=== PATIENT | female | born 1950 | race Caucasian/White ===

== ENCOUNTER 2018-01-06 06:15 | Day surgery (SDC) | payer MEDICARE, BC, SELFPAY ==
--- NOTE | 2018-01-06 06:13 | W.PM.HP.N ---
Date of service: 01/06/18 Assessment and Plan (1) Encounter for colorectal cancer screening: Current visit: Yes Status: Acute P\\ Colonoscopy under sedation Risks, benefits and adhesions were reviewed with the patient. Complications include but are not limited to bleeding, pain, perforation, adverse reaction to the medications, missed small polyps or lesions, sore throat and aspiration. Questions were entertained and answered to her satisfaction and she wished to proceed. No guarantees were given or implied. History of Present Illness Narrative: Mrs. Ybarra 67-year-old female who was seen in the office in October for a screening colonoscopy. Her last colonoscopy was 10 years ago and was normal. She was told she had some scar tissue from possible having a fistula. She has noted that after going to the bathroom and cleaning herself she has staining in her underwear no rectal pain or bleeding. She denies any melena, hematochezia, abdominal pain, weight loss or changes in bowel habits. There is no family history of colon cancer. She is healthy and denies any chest pain. She has had some progressive shortness of breath with exercise which is being worked up. She is able to walk up a flight of stairs without shortness of breath. There has been no changes in her health since she was seen in the office in late October. 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 Postmenopausal Social History Smoking/Tobacco Use Status: Never Surgical History Appendectomy (~1989) Breast, Mastectomy (08/09/15) Colonoscopy - IV Sedation Total replacement of hip (06/30/16) Ultrasound guided automated core biopsy, left breast (07/15/15) Meds Home Medications Medication Instructions Recorded Confirmed Type Compounded T3/T4 1 cap PO DAILY cap 09/03/14 01/03/18 History Adrenal 1 tab PO DAILY 04/18/15 01/03/18 History Ca carb-Ca gluc-Mg ox-Mg gluco 1 ea PO DAILY 04/18/15 01/03/18 History [Calcium Magnesium] Tumeric Complex 2 cap PO BID 04/18/15 01/03/18 History cholecalciferol (vitamin D3) 3,000 - 5,000 unit PO DAILY 04/18/15 01/03/18 History [Vitamin D3] multivitamin [Daily Multi-Vitamin] 1 ea PO DAILY 04/18/15 01/03/18 History K Mg 3 tab PO DAILY 06/24/15 01/03/18 History Herbal Support Complex 1 cap PO DAILY 06/18/16 01/03/18 History Thyroid Support 1 tab PO DAILY 01/21/17 01/03/18 History acetaminophen [Mapap Extra 1,000 mg PO Q8H PRN PRN #120 tab 01/29/17 01/03/18 Rx Strength] sertraline 25 mg PO DAILY #90 tab 07/06/17 01/03/18 Rx Cbd Oil PO HS 08/19/17 Clinic Potassium Bicarb/Mag Combo 21 183 gm PO DAILY NS 11/09/17 01/03/18 History [Magnesium Fizz-Plus Powder] aspirin [Low Dose Aspirin Ec] 81 mg PO DAILY tab-cap NS 11/09/17 History bisacodyl [Bisa-Lax] 5 mg PO as directed #4 tab 11/09/17 Rx polyethylene glycol 3350 255 gm PO as directed for colo 11/09/17 Rx #255 gm amoxicillin 2 g PO ONCE PRN 01/03/18 01/03/18 History Allergies Allergy/AdvReac Type Severity Reaction Status Date / Time celecoxib [From Celebrex] Allergy Intermediate rash Unverified 01/03/18 14:19 NSAIDS (Non-Steroidal Allergy Unknown Hives Unverified 01/03/18 14:19 Anti-Inflamma adhesive AdvReac LG LOCAL Unverified 01/03/18 14:19 REACTION codeine [Codeine] AdvReac DIZZINESS/L Unverified 01/03/18 14:19 IGHTHEADEDN ESS FRAGRANCES Allergy Unknown Skin Rash Uncoded 01/03/18 14:19 chlorine AdvReac Mild Skin Rash Uncoded 01/03/18 14:19 Exam HENMT Head: normocephalic and atraumatic Resp Effort & Inspection: normal respiratory effort Auscultation: clear to auscultation bilaterally Cardio Rate: regular rate Rhythm: regular rhythm Heart Sounds: no click, no gallops, no murmurs and no rubs
--- NOTE | 2018-01-06 06:22 | W.COLOREPORT ---
Colonoscopy Report Date of procedure: 01/06/18 Pre-op diagnosis general: Screening Colonoscopy Post-op diagnosis procedure note: other (Diverticulosis/ internal hemorrhoids/ skin tags) Procedure: Colonoscopy with biopsy Surgeon: Gertrude Johnston Anesthesia proc note operative: MAC (Adama Velasquez CRNA) Estimated blood loss (mL): 1 Pathology: none sent Complications: None Disposition: same day Indications: Mrs. Ybarra is here for a screening Colonoscopy. Her last colonoscopy was normal 10 years ago. Risks, benefits and complications were again reviewed with her and she wished to proceed. No guarantees were given or implied to stop Prep: Miralax/Dulcolax Procedure Start Time: 07:42 Procedure End Time: 08:11 Retraction Time: 16 minutes Findings: Left sided diverticulosis Grade 2 internal hemorrhoids and skin tags Procedure Description: After informed consent was obtained the patient was taken to the procedure room and placed in a left decubitous position. Monitors were applied and a time out was done. The patients name, date of , procedure, allergies to medications and metal in their body was reviewed. The patient was then sedated. Once sedated and comfortable a rectal exam was done. External exam was normal. Internal exam revealed a normal sphincter tone and no palpable masses. The scope was then introduced and retroflexed. Grade 2 internal hemorrhoids were identified as well as skin tags. The scope was then advanced to the cecum with some difficulty. Her right colon was very tortuous. The TI and appendiceal orifice were identified. The prep was adequate. The scope was then slowly retracted over 16 minutes back into the rectum. Biopsies of a skin tag were done but the tissue was not found in the grasper or tubing. The scope was removed and the patient was woken up and taken back to Same day surgery in stable condition. The patient tolerated the procedure well and there were no immediate complications. Follow up: The patient should follow up in 10 years unless they develop changes in bowel habits or other new gastrointestinal complaints.
[2018-01-06 06:38] VITALS: BP 138/82; PULSE 80; RESP 18; TEMP 36.5; O2SAT 96
--- NOTE | 2018-01-06 06:39 | W.PM.DSUDISC ---
Discharge Plan Disposition Patient Disposition: HOME Condition: Good Discharge Details Reason For Visit: Colon Cancer screening Attending Provider: Gertrude Johnston Primary Care Provider: Lilliam Bah Home Meds and New Rx's Prescriptions: Continue compounded T3/T4 1 cap PO DAILY RF: 0 multivitamin [Daily Multi-Vitamin] 1 EACH tablet 1 ea PO DAILY RF: 0 cholecalciferol (vitamin D3) [Vitamin D3] 1,000 UNIT capsule 3,000 - 5,000 unit PO DAILY RF: 0 Ca carb-Ca gluc-Mg ox-Mg gluco [Calcium Magnesium] 1 EACH tablet 1 ea PO DAILY RF: 0 adrenal 1 tab PO DAILY RF: 0 tumeric complex 2 cap PO BID RF: 0 K Mg 3 tab PO DAILY RF: 0 sertraline 25 MG tablet 25 mg PO DAILY Qty: 90 RF: 3 CBD oil PO HS RF: 0 aspirin [Aspirin Low Dose] 81 MG tablet,delayed release (DR/EC) 81 mg PO DAILY RF: 0 Potassium Bicarb/Mag Combo 21 [Magnesium Fizz-Plus Powder] 183 GM POWD.EFFER 183 gm PO DAILY RF: 0 Thyroid Support 1 tab PO DAILY RF: 0 acetaminophen [Mapap Extra Strength] 500 MG tablet 1,000 mg PO Q8H PRN PRNQty: 120 RF: 0 Herbal Support Complex 1 cap PO DAILY RF: 0 amoxicillin 500 MG tablet 2 g PO ONCE PRNRF: 0 Discontinued bisacodyl [Bisa-Lax] 5 MG tablet,delayed release (DR/EC) 5 mg PO as directed Qty: 4 RF: 0 polyethylene glycol 3350 255 GM powder 255 gm PO as directed for colo Qty: 255 RF: 0 Discharge Instructions Instructions: Colonoscopy (DC), Hemorrhoids (DC), Diverticulosis (DC) Additional Instructions: Findings: Internal hemorrhoids and skin tag Diverticulosis Follow up: 10 years New Medications: none Please call if you develop: fevers >101.5 Nausea or Vomiting Non Transient abdominal pain Worsening shortness of breath 1. Because there will be medication in your system for the next 24 hours, you may feel a little sleepy. Your coordination will be affected. Therefore: a. Do not drive or operate dangerous equipment for 24 hours. b. Do not drink alcohol beverages for 24 hours (not even beer). c. Plan to go home and rest for the day. 2. Generally there are no restrictions on your activity after a day or so has gone by, but you may feel a bit fatigued for a few days. 3 After you arrive home you may have a light meal and return to a normal diet as you can tolerate it without feeling sick to your stomach. 4. After surgery, you may feel pain or discomfort. This should be only transient, but if it persists please contact your doctor. 5. If there are any questions regarding the findings of your procedure, please feel free to contact your doctor. 6. If you are unable to contact your doctor with a problem, [facility] at [phone]. 7. Continue all your regular medications unless directed otherwise. I understand the above instructions and have no questions. Signature of Patient or Responsible Adult Escort Date/Time Name of Responsible Adult Escort Signature of Nurse Date/Time Activity:: Activity as Tolerated Diet:: As Tolerated Discharge Orders Discharge Orders: Discharge Order (Routine); Ordered 01/06/18 Ordered By: Gertrude Johnston DS: Diagnosis Discharge Diagnosis (1) Encounter for colorectal cancer screening: Status: Acute
[2018-01-06] MEDS: Lactated Ringers 1,000 ML 80 ML IV (07:00)
[2018-01-06 08:45] VITALS: BP 125/66; PULSE 52; RESP 18; TEMP 36.1; O2SAT 97
== END 2018-01-06 09:40 | disposition home or self-care (01) ==
PROVIDERS: PCP Nurse Practitioner Family; Visit Provider Surgery
PROC: 0DJD8ZZ Inspection of Lower Intestinal Tract, Via Natural or Artificial Opening Endoscopic (ICD-10-PCS; CPT 45378; principal; 2018-01-06 07:30)
DX: Z12.11 Encounter for screening for malignant neoplasm of colon (principal); K57.30 Diverticulosis of large intestine without perforation or abscess without bleeding; K64.1 Second degree hemorrhoids; K64.4 Residual hemorrhoidal skin tags
CPT/HCPCS: G0121; NC; J2250; J3010

== ENCOUNTER 2018-01-24 08:10 | Outpatient (CLI) | payer MEDICARE, BC, SELFPAY ==
--- NOTE | 2018-01-24 08:01 | DI.RAD_ITS ---
SYMPTOM/DIAGNOSIS: B/L GUICHO PELVIS AND BILATERAL HIPS: Comparison is 01/28/17 and 07/05/17. There are again seen post surgical changes with bilateral total hip replacements. No evidence of hardware failure seen. The bones are intact and normally mineralized. The soft tissues are unremarkable. IMPRESSION: Stable bilateral THR.
== END 2018-01-24 08:30 ==
PROVIDERS: PCP Nurse Practitioner Family; Visit Provider Physician Assistant
DX: Z96.643 Presence of artificial hip joint, bilateral (principal); Z47.1 Aftercare following joint replacement surgery; M76.31 Iliotibial band syndrome, right leg
CPT/HCPCS: 73521; 99213

== ENCOUNTER 2018-02-25 02:05 | Outpatient (CLI) | payer MEDICARE, BC, SELFPAY ==
[2018-02-25 10:02] LABS: Abs Immature Grans 0.01 k/cumm (0.0-0.09); Absolute Basophil Count 0.02 k/cumm (0.0-0.2); Absolute Eosinophil Count 0.06 k/cumm (0.0-0.7); Absolute Lymphocyte Count 1.99 k/cumm (1.2-3.4); Absolute Monocyte Count 0.43 k/cumm (0.11-0.7); Basophils % 0.4; Eosinophils % 1.2; HCT 42.3 % (36.0-46.0); HGB 14.3 g/dL (12.0-15.5); Immature Grans % 0.2; Lymphocytes % 38.9; Mean Corp. HGB Concentration 33.8 g/dL (32.0-36.0); Mean Corpuscular Hemoglobin 29.5 pg (27.0-33.0); Mean Corpuscular Volume 87.2 fL (80-95); Mean Platelet Volume 9.8 fL (8.0-11.0); Monocytes % 8.4; Neutrophils % 50.9; Platelet Count 282 x1000/uL (130-400); RBC 4.85 m/cumm (4.00-5.20); RBC Distribution Width 13.3 % (11.7-14.6); White Blood Cell Count 5.11 k/cumm (4.4-10.8)
[2018-02-25 11:28] LABS: ESR 11 MM/HR (0-30)
[2018-02-25 13:24] LABS: ALT 33 U/L (12-78); AST 24 U/L (15-37); Alkaline Phosphatase 76 U/L (46-116); Anion Gap 9.7 mmol/L (3-11); BUN 19 mg/dL (7-18); Bilirubin, Total 0.5 mg/dL (0.2-1.0); CO2 26.3 mmol/L (21.0-32.0); CREATININE 0.82 mg/dL (0.55-1.02); Calcium 9.2 mg/dL (8.5-10.1); Chloride 105 mmol/L (98-107); Glucose 82 mg/dL (70-100); Potassium 4.3 mmol/L (3.5-5.1); Sodium 141 mmol/L (136-145); TSH (W/Ref FT4) 0.09 uIU/mL (0.358-3.74); Total Protein 7.2 g/dL (6.4-8.2)
[2018-02-25 13:46] LABS: C-Reactive Protein 0.17 mg/dL (0.0-0.3); FREE T4 0.81 ng/dL (0.76-1.46)
== END 2018-02-25 02:25 ==
PROVIDERS: PCP Nurse Practitioner Family; Visit Provider Nurse Practitioner Family
DX: R53.83 Other fatigue (principal); M25.50 Pain in unspecified joint; E03.9 Hypothyroidism, unspecified
CPT/HCPCS: 36415; 80053; 85652; 84439; 84443; 85025; 86140

== ENCOUNTER 2018-06-03 09:18 | Outpatient (CLI) | payer MEDICARE, BC, SELFPAY ==
--- NOTE | 2018-06-03 09:23 | DI.RAD_ITS ---
SYMPTOM/DIAGNOSIS: OA VS ? RA, BILAT KNEE PAIN, JOINT STIFFNESS, M25.561,M25.662, M25.5661 RIGHT KNEE: Three views. Periarticular spurring is seen in the lateral femoral tibial joint space. The joint spaces are otherwise well maintained. No suspicious lytic or sclerotic lesions are seen. The soft tissues show no acute abnormality. There is an enthesophyte seen at the inferior aspect of the patella. IMPRESSION: Mild degenerative changes of the right knee. LEFT KNEE: Three views. The joint spaces are well maintained. The bones appear intact. No suspicious lytic or sclerotic lesions are seen. The soft tissues show no acute abnormality. IMPRESSION: Negative left knee.
[2018-06-03 10:20] LABS: Abs Immature Grans 0.02 k/cumm (0.0-0.09); Absolute Basophil Count 0.02 k/cumm (0.0-0.2); Absolute Eosinophil Count 0.09 k/cumm (0.0-0.7); Absolute Lymphocyte Count 2.19 k/cumm (1.2-3.4); Absolute Monocyte Count 0.61 k/cumm (0.11-0.7); Absolute Neutrophil Count 3.28 k/cumm (1.2-6.7); Basophils % 0.3; Eosinophils % 1.4; HCT 44.4 % (36.0-46.0); Immature Grans % 0.3; Lymphocytes % 35.3; Mean Corp. HGB Concentration 33.8 g/dL (32.0-36.0); Mean Corpuscular Hemoglobin 29.2 pg (27.0-33.0); Mean Corpuscular Volume 86.5 fL (80-95); Monocytes % 9.8; Neutrophils % 52.9; Platelet Count 290 x1000/uL (130-400); RBC 5.13 m/cumm (4.00-5.20); RBC Distribution Width 13.6 % (11.7-14.6); White Blood Cell Count 6.21 k/cumm (4.4-10.8)
[2018-06-03 11:16] LABS: C-Reactive Protein 0.15 mg/dL (0.0-0.3)
[2018-06-03 11:18] LABS: ESR 16 MM/HR (0-30)
[2018-06-06 08:54] LABS: Cyclic Citrullinated Peptide <2.5 U/mL (<5.0)
[2018-06-06 09:19] LABS: Rheumatoid Factor <8 IU/mL (<12.5)
== END 2018-06-03 09:38 ==
PROVIDERS: PCP Nurse Practitioner Family; Visit Provider Nurse Practitioner Family
DX: M25.561 Pain in right knee (principal); M25.661 Stiffness of right knee, not elsewhere classified; M17.11 Unilateral primary osteoarthritis, right knee; M25.562 Pain in left knee; M25.662 Stiffness of left knee, not elsewhere classified
CPT/HCPCS: 36415; 73562; 85652; 86200; 85025; 86140; 86431

== ENCOUNTER 2018-07-12 15:38 | Outpatient (CLI) | payer MEDICARE, BC, SELFPAY ==
--- NOTE | 2018-07-12 12:30 | DI.RAD_ITS ---
SYMPTOMS/DIAGNOSIS: RHONCHI, R09.89 CHEST X-RAY, PA AND LATERAL: Comparison is 07/05/15. The heart size and pulmonary vasculature are within normal limits. The lungs are free of infiltrates, effusions or pneumothoraces. Degenerative changes are seen in the spine. IMPRESSION: No acute pulmonary process.
== END 2018-07-12 15:58 ==
PROVIDERS: PCP Nurse Practitioner Family; Visit Provider Internal Medicine
DX: J98.8 Other specified respiratory disorders (principal); R09.89 Other specified symptoms and signs involving the circulatory and respiratory systems
CPT/HCPCS: 71046

== ENCOUNTER 2018-08-25 12:51 | Outpatient (REF) | payer MEDICARE, BC, SELFPAY ==
--- NOTE | 2018-08-25 10:30 | PAPFT_PTH ---
PATIENT: Pilar Ybarra LOC: [facility] U#:[id number] AGE/SX: 68/F ROOM: RE08/25/[address]: Lilliam Bah APRN : 1950 BED: DIS: 08/25/2018 SPEC #: [id number] RECD: 08/25/18 12:58 STATUS: [place] REPuma #: [id number] [place]: 08/25/18 10:[address]: Lilliam Bah DEPT: [facility] Cytology RECD BY: Kylah Schneider Tissues: 1 - CX/ENDOCX FOR PAP SMEARS Procedures: PAP THIN PREP/UVM Screening Comments: [id number]
== END 2018-08-25 13:11 ==
LOC: LBN 12:51
PROVIDERS: PCP Nurse Practitioner Family; Visit Provider Nurse Practitioner Family
DX: Z12.4 Encounter for screening for malignant neoplasm of cervix (principal); Z91.89 Other specified personal risk factors, not elsewhere classified
CPT/HCPCS: 88142

== ENCOUNTER 2018-08-26 02:36 | Outpatient (CLI) | payer MEDICARE, BC, SELFPAY ==
[2018-08-26 10:08] LABS: Anion Gap 9.2 mmol/L (3-11); BUN 12 mg/dL (7-18); CO2 25.8 mmol/L (21.0-32.0); CREATININE 0.83 mg/dL (0.55-1.02); Calcium 9.2 mg/dL (8.5-10.1); Chloride 105 mmol/L (98-107); Glucose 95 mg/dL (70-100); Potassium 4.4 mmol/L (3.5-5.1); Sodium 140 mmol/L (136-145)
[2018-08-29 10:07] LABS: Hepatitis C Ab w Rflx HCV PCR Negative (NEGAT)
== END 2018-08-26 02:56 ==
PROVIDERS: PCP Nurse Practitioner Family; Visit Provider Nurse Practitioner Family
DX: Z11.59 Encounter for screening for other viral diseases (principal); Z13.1 Encounter for screening for diabetes mellitus; R69 Illness, unspecified
CPT/HCPCS: 36415; 80048; 86803

== ENCOUNTER 2018-09-20 00:54 | Outpatient (CLI) | payer MEDICARE, BC, SELFPAY ==
--- NOTE | 2018-09-20 13:13 | DI.MAMMO_ITS ---
SYMPTOMS/DIAGNOSIS: SCREENING, H/O LEFT BREAST CA, Z12.31, Z85.3 MAMMOGRAM: Mammograms were interpreted according to the usual protocol including computer analysis with CAD system, tomosynthesis and C view imaging. The patient has a history of prior left mastectomy for breast carcinoma. No mass or clumped microcalcification identified in the right breast. Comparison with previous examinations including August 2017 shows no interval change in appearance in comparison with the previous studies. CONCLUSION: No specific evidence of malignancy at this time. Routine screening examinations are suggested at yearly intervals due to the history breast carcinoma. Category 1, breast density category B. MQSA ASSESSMENT OF FINDINGS: Negative. Category 1. Patient will receive a letter notifying them of these results. BI-RADS category B. There are scattered areas of fibroglandular density.
--- NOTE | 2018-09-20 13:13 | DI.RAD_ITS ---
SYMPTOMS/DIAGNOSIS: SCREENING FOR OSTEOPOROSIS, Z78.0, ASYMPTOMATIC MENOPAUSAL STATE DEXA SCAN: DEXA scan was performed according to the usual protocol. Hip scanning was not obtained due to bilateral hip replacements. Lumbar spine scanning shows a T score of 0.2. Previous examination of May 2008 showed a lumbar T score of - 0.2. Left forearm scanning shows a T score of -0.7. Please note that the lateral vertebral scanogram shows no evidence of vertebral compression fracture. CONCLUSION: Findings consistent with normal bone density according to the WHO criteria.
== END 2018-09-20 01:14 ==
PROVIDERS: PCP Nurse Practitioner Family; Visit Provider Nurse Practitioner Family
DX: Z85.3 Personal history of malignant neoplasm of breast; Z13.820 Encounter for screening for osteoporosis; Z78.0 Asymptomatic menopausal state; Z12.31 Encounter for screening mammogram for malignant neoplasm of breast; Z90.12 Acquired absence of left breast and nipple; Z96.643 Presence of artificial hip joint, bilateral
CPT/HCPCS: 77063; 77067; 77080

== ENCOUNTER 2018-10-13 00:10 | Outpatient (CLI) | payer MEDICARE, BC, SELFPAY ==
--- NOTE | 2018-10-13 08:30 | ETT_ITS ---
*[facility]* *[facility]* [address] [place] [address] Stress Electrocardiography Reggie protocol Date of study: 10/13/2018 *PATIENT PRESENTATION* Height: 177.8cm (70in) Blood Pressure: Weight: 90.9kg (200lb) BSA: 2.14m^2 Ordering physician: Lilliam Bah Impressions: Normal study after maximal exercise. Summary: 1. Stress ECG conclusions: The stress ECG is negative. Occasional ventricular ectopy. 2. Stress: The target heart rate was achieved. There is a normal resting blood pressure with an appropriate response to stress. The patient experienced no chest pain during stress. Exercise capacity is average for age. Indication: R06.09. History: REASON FOR VISIT: PT WITH COPD AND ASTHMA IS HAVING PROGRESSIVELY MORE SHORT OF BREATH WITH EXERTION. INTERMITTENT HEART RACING AND OCCASIONAL HEART PALPITATIONS. PMH: COPD. Asthma. Risk factors: Family history of coronary artery disease. Dyslipidemia. Cholesterol: 200mg/dl. HDL: 56mg/dl. LDL: 119mg/dl. Triglycerides: 172mg/dl. ALLERGIES:CELECOXIB. NSAIDS. MEDICATIONS: SERTRALINE 50 MG DAILY. MVI 1 DAILY. CHOLECALCIFEROL 3,000 - 5,000 DAILY. TUMERIC COMPLEX 2 CAPS BID. THYROID SUPPORT 1 TAB DAILY. K MG 1 TABS DAILY. HERBALS SUPPORT COMPLEX 1 COMPLEX 1 CAP DAILY. COMPOUNDED T3/T4 1 CAP DAILY. CBD OIL PO HS. CALCIUM MAGNESIUM 1 DAILY. ADRENAL SUPPORT 1 TAB DAILY. Protocol: Reggie protocol. Baseline ECG: SINUS RHYTHM. HR 64 BPM. Stress protocol: + +---+ + !Stage !HR !BP (mmHg) ! + +---+ + !Baseline supine !64 !130/82 (98) ! + +---+ + !Baseline standing !82 !138/96 (110) ! + +---+ + !Stage I; 1.7mph, 10degrees; 3 min !128!164/82 (109) ! + +---+ + !Stage II; 2.5mph, 12degrees; 3 min!145! ! + +---+ + !Peak stress !160! ! + +---+ + !Recovery; 1 min !88 !186/100 (129)! + +---+ + !Recovery; 3 min !70 !160/82 (108) ! + +---+ + !Recovery; 6 min !74 !148/80 (103) ! + +---+ + * Stress results: Maximal heart rate during stress was 160bpm (105% of maximal predicted heart rate). The maximal predicted heart rate was 152bpm. The target heart rate was achieved. There is a normal resting blood pressure with an appropriate response to stress. The rate-pressure product for the peak heart rate and blood pressure was 49324an Hg/min. The patient experienced no chest pain during stress. Exercise capacity is average for age. Stress ECG: TREADMILL PORTION OF STRESS TEST ENDED IN 4 MINUTES & 25 SECONDS DUE TO SHORTNESS OF BREATH. NORMAL HEART RATE AND BLOOD PRESSURE RESPONSE TO EXERCISE MAX HR = 160 % OF TARGET = 105 PVCs DURING PEAK EXERCISE APPROXIMATE METS ACHIEVED = 6.33 NO ANGINA MILD UPWARD SLOPING ST SEGMENT DEPRESSIONS IN LEAD V4, V5 & V6 NOTED DURING AT IMMEDIATE RECOVERY THEN QUICKLY RETURNED TO BASELINE. AVERAGE FUNCTIONAL CAPACITY FOR EXERCISE. The stress ECG is negative. Occasional ventricular ectopy. Study data: Kavya Little MD supervised and was readily available during the procedure. This study was interpreted by [facility]. Study status: Routine. Consent: The risks, benefits, and alternatives to the procedure were explained to the patient and informed consent was obtained. Procedure: Initial setup. A baseline ECG was recorded. Surface ECG leads and manual cuff blood pressure measurements were monitored. Heart sounds: Normal. Lung sounds: Normal. Treadmill exercise testing was performed using the Reggie protocol. Study completion: The patient tolerated the procedure well and was discharged from the lab. Discharge: The patient left the laboratory in stable condition. Birthdate: Patient birthdate: 1950. Sex: Gender: female. Study date: Study date: 10/13/2018. Study time: 00:01 AM. Signature Documentation: The Stress ECG portion of this study was interpreted by Kavya Little MD. Electronically signed by Kavya Little 10/13/2018 16:55
== END 2018-10-13 00:30 ==
PROVIDERS: PCP Nurse Practitioner Family; Visit Provider Nurse Practitioner Family
DX: R06.09 Other forms of dyspnea (principal); J44.9 Chronic obstructive pulmonary disease, unspecified; J45.909 Unspecified asthma, uncomplicated; R00.2 Palpitations; E78.5 Hyperlipidemia, unspecified; Z82.49 Family history of ischemic heart disease and other diseases of the circulatory system
CPT/HCPCS: 93016; 93018; 93017

== ENCOUNTER 2019-01-23 01:33 | Outpatient (CLI) | payer MEDICARE, BC, SELFPAY ==
[2019-01-23 09:57] LABS: TSH (W/Ref FT4) 1.24 uIU/mL (0.36-3.74)
== END 2019-01-23 01:53 ==
PROVIDERS: PCP Student in an Organized Health Care Education/Training Program; Visit Provider Nurse Practitioner Family
DX: E03.9 Hypothyroidism, unspecified (principal)
CPT/HCPCS: 36415; 84443

== ENCOUNTER 2019-05-15 02:05 | Outpatient (CLI) | payer MEDICARE, BC, SELFPAY ==
[2019-05-15 11:46] LABS: FREE T4 1.14 ng/dL (0.76-1.46); TSH 0.01 uIU/mL (0.36-3.74)
[2019-05-15 16:14] LABS: T3,Free 7.7 pg/mL (2.8-5.3)
== END 2019-05-15 02:25 ==
PROVIDERS: PCP Student in an Organized Health Care Education/Training Program; Visit Provider Student in an Organized Health Care Education/Training Program
DX: E06.3 Autoimmune thyroiditis (principal); F32.9 Major depressive disorder, single episode, unspecified
CPT/HCPCS: 36415; 84439; 84443; 84481

== ENCOUNTER 2019-08-22 03:46 | Outpatient (CLI) | payer MEDICARE, BC, SELFPAY ==
[2019-08-22 11:13] LABS: TSH 0.01 uIU/mL (0.36-3.74)
[2019-08-22 17:30] LABS: T3,Free 5.6 pg/mL (2.8-5.3)
[2019-08-22 17:42] LABS: T3, Total 172 ng/dL (97-169)
== END 2019-08-22 04:06 ==
PROVIDERS: PCP Student in an Organized Health Care Education/Training Program; Visit Provider Student in an Organized Health Care Education/Training Program
DX: E06.3 Autoimmune thyroiditis (principal)
CPT/HCPCS: 36415; 84443; 84480; 84481

== ENCOUNTER 2019-09-12 02:39 | Outpatient (CLI) | payer MEDICARE, BC, SELFPAY ==
[2019-09-12 09:51] LABS: Abs Immature Grans 0.01 k/cumm (0.0-0.09); Absolute Basophil Count 0.03 k/cumm (0.0-0.2); Absolute Eosinophil Count 0.12 k/cumm (0.0-0.7); Absolute Lymphocyte Count 2.36 k/cumm (1.2-3.4); Absolute Neutrophil Count 4.03 k/cumm (1.2-6.7); Basophils % 0.4; Eosinophils % 1.7; HCT 43.1 % (36.0-46.0); HGB 14.8 g/dL (12.0-15.5); Immature Grans % 0.1 %; Lymphocytes % 33.5; Mean Corp. HGB Concentration 34.3 g/dL (32.0-36.0); Mean Corpuscular Hemoglobin 30.1 pg (27.0-33.0); Mean Corpuscular Volume 87.6 fL (80-95); Mean Platelet Volume 9.8 fL (8.0-11.0); Monocytes % 7.1; Neutrophils % 57.2; Platelet Count 318 x1000/uL (130-400); RBC 4.92 m/cumm (4.00-5.20); RBC Distribution Width 13.7 % (11.7-14.6); White Blood Cell Count 7.05 k/cumm (4.4-10.8)
== END 2019-09-12 02:59 ==
PROVIDERS: PCP Student in an Organized Health Care Education/Training Program; Visit Provider Student in an Organized Health Care Education/Training Program
DX: R21 Rash and other nonspecific skin eruption (principal)
CPT/HCPCS: 36415; 85025

== ENCOUNTER 2019-09-25 07:21 | Outpatient (CLI) | payer MEDICARE, BC, SELFPAY ==
[2019-09-27 14:52] LABS: COVID-19 RT-PCR Result NEGATIVE (Negative)
== END 2019-09-25 07:41 ==
PROVIDERS: PCP Student in an Organized Health Care Education/Training Program; Visit Provider Family Medicine
DX: Z03.818 Encounter for observation for suspected exposure to other biological agents ruled out (principal)
CPT/HCPCS: U0003

== ENCOUNTER 2019-09-28 08:41 | Outpatient (CLI) | payer MEDICARE, BC, SELFPAY ==
[2019-09-28] MEDS: Albuterol HFA 18 GM 200 PUFF INH IH (12:59)
[2019-09-28] MEDS: Inhaler, Assist Device 1 EACH MC (13:00)
--- NOTE | 2019-09-30 16:23 | W.PFT ---
Date of service: 09/28/19 Time of Service: 09:06 Pulmonary Function Test Result Interpretation Spirometry: Spirometry shows no evidence of obstructive airways disease, no bronchodilator response Lung Volumes: Not done Diffusion Capacity: Not done Airway Pressure: Not done Impression Normal spirometry. Clinical correlation recommended Clinical Correlation therefore is recommended.
--- NOTE | 2019-09-30 16:25 | W.PFT ---
Date of service: 09/28/19 Time of Service: 09:06 Pulmonary Function Test Result Impression When the study was compared to previous ones from 06/07/2008 and 06/11/2015 the patient has a gradual slight decline in FVC with a total of 440 cc, FEV1 also had an initial decline and a subsequent slight improvement, overall decline is 190 cc. Clinical Correlation therefore is recommended.
== END 2019-09-28 09:01 ==
PROVIDERS: PCP Student in an Organized Health Care Education/Training Program; Visit Provider Internal Medicine
DX: J45.909 Unspecified asthma, uncomplicated (principal)
CPT/HCPCS: 94060

== ENCOUNTER 2019-10-26 01:03 | Outpatient (CLI) | payer MEDICARE, BC, SELFPAY ==
--- NOTE | 2019-10-26 09:20 | DI.MAMMO_ITS ---
EXAM: MG MAMMO SCREENING 60 MIN DUR CLINICAL HISTORY: breast cancer screening,personal h/o breast ca,z85.3 TECHNIQUE: Bilateral full field digital CC and MLO mammographic images were obtained with 3D tomosyn thesis and utilizing computer aided detection (CAD). COMPARISON: Available for comparison. FINDINGS: The patient is status post left mastectomy. Masses/Architectural Distortion: None seen. Microcalcifications: No suspicious pleomorphic-type are seen. Skin Thickening/Nipple Retraction: None. IMPRESSION: 1. No significant interval change with no specific features of malignancy noted. 2. Unless there is more urgent need, screening mammography is recommended, as per [place] [employer] guidelines. BI-RADS Category 1 - Negative Breast Density - Category B - Scattered areas of fibroglandular density A negative radiographic report should not delay biopsy if a dominant or clinically suspicious mass is present. Up to ten percent of cancers are not identified on mammography. A negative report may reinforce clinical impression. Adenosis and dense breasts may obscure an underlying neoplasm. False positive reports average 6 to 10%. Patient will receive a letter notifying them of these results.
== END 2019-10-26 01:23 ==
PROVIDERS: PCP Student in an Organized Health Care Education/Training Program; Visit Provider Nurse Practitioner
DX: Z12.31 Encounter for screening mammogram for malignant neoplasm of breast (principal); Z85.3 Personal history of malignant neoplasm of breast
CPT/HCPCS: 77063; 77067

== ENCOUNTER 2019-10-26 03:14 | Outpatient (CLI) | payer MEDICARE, BC, SELFPAY ==
[2019-10-26 10:04] LABS: ALT 36 U/L (14-59); AST 22 U/L (15-37); Albumin 4.1 g/dL (3.4-5.0); Alkaline Phosphatase 77 U/L (46-116); Anion Gap 11.8 mmol/L (3-11); BUN 12 mg/dL (7-18); Bilirubin, Total 0.5 mg/dL (0.2-1.0); CO2 24.2 mmol/L (21.0-32.0); CREATININE 0.75 mg/dL (0.55-1.02); Calcium 9.1 mg/dL (8.5-10.1); Calculated LDL 152 mg/dL (<100); Chloride 107 mmol/L (98-107); Cholesterol 238 mg/dL (<200); Glucose 93 mg/dL (74-106); HDL Cholesterol 57 mg/dL (40-60); Potassium 4.4 mmol/L (3.5-5.1); Sodium 143 mmol/L (136-145); TSH (W/Ref FT4) 0.14 uIU/mL (0.36-3.74); Total Protein 7.3 g/dL (6.4-8.2); Triglyceride 146 mg/dL (<150)
[2019-10-26 10:50] LABS: FREE T4 1.19 ng/dL (0.76-1.46)
[2019-10-26 17:57] LABS: T3,Free 2.7 pg/mL (2.8-5.3)
== END 2019-10-26 03:34 ==
PROVIDERS: PCP Student in an Organized Health Care Education/Training Program; Visit Provider Student in an Organized Health Care Education/Training Program
DX: J44.9 Chronic obstructive pulmonary disease, unspecified (principal); Z13.220 Encounter for screening for lipoid disorders; E86.0 Dehydration; E06.3 Autoimmune thyroiditis
CPT/HCPCS: 36415; 80053; 80061; 84439; 84443; 84481

== ENCOUNTER 2020-03-18 02:00 | Outpatient (CLI) | payer MEDICARE, BC, SELFPAY ==
--- NOTE | 2020-03-18 07:15 | DI.US_ITS ---
EXAM: US SOFT TISSUE HEAD OR NECK CLINICAL HISTORY: evaluate goiter size,SLIGHT LT SIDE PROTRUSION TO PALPATION,THYROIDITIS,. TECHNIQUE: Ultrasound was performed using standard protocol. COMPARISON: US RIGHT EXTREMITY ULTRASOUND from 08/26/2017 US US THYROID from 03/18/2020 FINDINGS: Sonographic assessment utilizing grayscale and color Doppler imaging was performed and targeted to th e area of clinical concern. Both thyroid lobes exhibit normal size. The right thyroid lobe measures 1.4 centimetres AP by 1.6 seun timetres wide by 4.4 centimetres cephalocaudal. The left thyroid lobe measures 1.3 centimeters AP x 1 .7 centimeters wide by 4.6 centimetres cephalocaudal. Echo architecture is heterogeneous throughout b oth lobes as well as the isthmus. The isthmus itself is not thickened. There are numerous nodules in both lobes as well as in the isthmus, with a total of 11 focal findings . The most significant nodules are as follows... In the superior half of the left lobe there is a taller than wider solid nodule measuring 1.4 by 0.9 by 0.8 cm. It is isoechoic to surrounding parenchyma, exhibits relatively smooth border but contains some calcifications therein. Ti-Rads= 7 points, requiring FNA. Medial to this is a smaller 4 by 3 x 5 millimeter solid nodule in the upper aspect of the left lobe a nd in the inferior aspect of the lower lobe are other smaller nodules measuring 8 x 5 x 7 and 6 x 4 x 5 millimeters. Also small nodules in the isthmus. In the right lobe there are 6 nodules, the most significant being superiorly. There are 2 nodules in the superior aspect of the right lobe. The more lateral of the 2 is a solid 8 x 8 x 8 millimeter nodu le which affects the contour of the gland at this level, indenting the overlying strap muscle. This i s wider than taller and is isoechoic. It does not contain echogenic foci. Total tir-rads point= 6 which is moderately suspicious. Just medial to this in the right lobe is a 10 x 8 x 15 millimeter mixed solid cystic nodule. This is wider than taller and does not contain echogenic foci. Total points = 3 Otherwise, there are multiple small solid nodules which are less concerning in both lobes. No gross lymphadenopathy evident IMPRESSION: 1. Both thyroid lobes exhibit normal size but contain numerous nodules. 2. There are 2 nodules which require FNA. One of these is in the superior aspect of the left lobe a s described above (TiRads 5= significant suspicious ) The other is the solid nodule in the superior aspect of the opposite-right lobe which exhibits an néstor ment of extrathyroidal extension. (TiRads 4) 3. There is no gross lymphadenopathy evident. DATA REPOSITORY:
== END 2020-03-18 02:20 ==
PROVIDERS: PCP Student in an Organized Health Care Education/Training Program; Visit Provider Student in an Organized Health Care Education/Training Program
DX: E04.2 Nontoxic multinodular goiter (principal)
CPT/HCPCS: 76536

== ENCOUNTER 2020-03-18 03:51 | Outpatient (CLI) | payer MEDICARE, BC, SELFPAY ==
[2020-03-18 10:46] LABS: TSH (W/Ref FT4) 0.98 uIU/mL (0.36-3.74)
== END 2020-03-18 04:11 ==
PROVIDERS: PCP Student in an Organized Health Care Education/Training Program; Visit Provider Student in an Organized Health Care Education/Training Program
DX: E06.3 Autoimmune thyroiditis (principal)
CPT/HCPCS: 36415; 84443; 84481

== ENCOUNTER 2020-07-02 09:51 | Outpatient (CLI) | payer MEDICARE, BC, SELFPAY ==
--- OUTSIDE RECORDS SUMMARY | 2020-07-02 09:56 | XMS_ITS ---
:1950 Author Care Team Providers Name Role Phone COLE OLIVA Primary Care Provider [phone] COLE OLIVA Referring Provider [phone] Allergies Code Code System Name Reaction Severity Status Onset Adhesive ? ? Active ? 360933 RxNorm Celecoxib Rash ? Active ? 2670 RxNorm Codeine Dizziness ? Active ? Nsaids Hives ? Active ? (Non-steroidal Anti-inflammat ory Drug) Notes: also allergic to chlorine ; gets skin rash AND FRAGRENCES SKIN RASH Medications Name Status Start Date Stop Date ? ? acetaminophen 500 mg tablet Active ? Not available Take 2 tablets every 4 hours by oral route as needed. Adrenal Active ? Not available ONCE DAILY albuterol sulfate HFA 90 mcg/actuation aerosol inhaler Active ? Not available Inhale 1 puff every 6 hours by inhalation route as needed. Aspir-81 mg tablet,delayed release Active ? Not available Take 1 tablet every day by oral route. Calcium Magnesium Active ? Not available ONCE DAILY compounded medication Active ? Not availa ble T3/T4 ONE CAPSULE DAILY multivitamin Active ? Not available ONCE DAILY sertraline 50 mg tablet Active ? Not avai lable Take 1 tablet every day by oral route. Vitamin D3 Active ? Not available [id number] UNITS DAILY Notes: TUMERIC 2 CAPSULES ONCE D AILY K MG 3 TABLETS DAILY HERBAL SUPPORT COMPLEX 1 CAPSULE DAILY THYROID SUPPORT 1 TABLET DAILY POTASSIUM BICARB MAG COMBO 183GM ONCE DA KHALIDA Problems Name Status Onset Date Source ? Inflammatory Carcinoma of Breast Active ? ? Racheal Thyroiditis Active ? ? Hyperlipidemia Active ? ? Lysergic Acid Diethylamide Dependence Active ? ? Chronic Depression Active ? ? Bilateral Hearing Loss Active ? ? Asthma Active ? ? Severe Chronic Obstructive Pulmonary Disease Active ? ? Diverticulitis Active ? ? Foot Callus Active ? ? Siren - Lesion Active ? ? Keratosis Active ? ? Osteoarthritis of Hip Active ? ? Spinal Stenosis of Lumbar Region Active ? ? Procedures Date Name Performed by ? 03/15/1989 Appendectomy Information not avai lable ? Mastectomy Information not avai lable Results Lab Results None recorded. Past Encounters None recorded. Social History Tobacco Smoking Status Never Smoker Notes: 11/16/18 Vaccine List None recorded. Plan of Care Reminders Provider Appointments None ? ? recorded. Lab None ? ? recorded. Referral None ? ? recorded. Procedures None ? ? recorded. Surgeries None ? ? recorded. Imaging None ? ? recorded. Vitals Height Weight BMI Blood Pressure 177.8 cm 90.72 kg 28.7 kg/m2 122/64 mm[Hg]
--- OUTSIDE RECORDS SUMMARY | 2020-07-02 09:56 | XMS_ITS ---
:1950 Author Care Team Providers Name Role Phone SHERMAN BURRIS DO Primary Care Provider [phone] Allergies Code Code System Name Reaction Severity Status Onset Adhesive ? ? Active ? 106280 RxNorm Celecoxib ? ? Active ? 2670 RxNorm Codeine ? ? Active ? Nsaids ? ? Active ? (Non-steroidal Anti-inflammat ory Drug) Medications Name Status Start Date Stop Date ? ? acetaminophen Active ? Not available 1000 MG Q8H Adrenal Active ? Not available 1 TAB DAILY Breo Ellipta 100 mcg-25 mcg/dose powder for inhalation Active ? Not available Inhale 1 puff every day by inhalation route. Breo Ellipta 200 mcg-25 mcg/dose powder for inhalation Active ? Not available Inhale 1 puff every day by inhalation route. Calcium Magnesium Active ? Not available 1 DAILY cholecalciferol (vitamin D3) Active ? Not available levothyroxine 100 mcg tablet Active ? Not available Take 1 tablet every day by oral route. liothyronine 25 mcg tablet Active ? Not a vailable Take 1 tablet every day by oral route. ProAir HFA 90 mcg/actuation aerosol inhaler Active ? Not available Inhale 2 puffs every 4 hours by inhalation route as needed. sertraline 50 mg tablet Active ? Not avai lable Take 1 tablet every day by oral route. vitamin B complex Active ? Not available Problems Name Status Onset Date Source ? 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 Asthma Active 05/24/2019 ? Chronic Obstructive Lung Disease Unknown 05/24/2019 ? Diverticulitis Active 05/24/2019 ? Fatigue Active 05/24/2019 ? Procedures Date Name Performed by ? 09/13/2019 Spirometry Xray [address] [place], [place] [address] (Work Place) Results Lab Results None recorded. Past Encounters 09/13/2019 Asthma Julia Loomis MD: [address] [place] [address] [address], [place] [address], Ph. 07/14/2019 Asthma Julia Loomis MD: [address] [place] [address] Dr karla [address] , [place] [address], Ph. Social History Tobacco Smoking Status Never Smoker Vaccine List Vaccine Type influenza, injectable, quadrivalent 11/23/2018 pneumococcal conjugate PCV 13 03/26/2016 pneumococcal polysaccharide PPV23 08/25/2018 Td (adult) 08/25/2018 Tdap 03/29/2008 Plan of Care Reminders Provider Appointments None ? ? recorded. Lab None ? ? recorded. Referral None ? ? recorded. Procedures None ? ? recorded. Surgeries None ? ? recorded. Imaging None ? ? recorded. Vitals 09/13/2019 02:00PM Office 15 Height Weight BMI Blood Pressure 177.8 cm 95.9 kg 30.3 kg/m2 128/70 mm[Hg] 07/14/2019 01:00PM Office 15 Height Weight BMI 177.8 cm 95 kg 30.1 kg/m2
== END 2020-07-02 09:52 | disposition home or self-care (01) ==
LOC: RT 09:55
PROVIDERS: PCP Student in an Organized Health Care Education/Training Program; Visit Provider Student in an Organized Health Care Education/Training Program
DX: R51.9 Headache, unspecified (principal)
CPT/HCPCS: 94762

== ENCOUNTER 2020-08-27 02:36 | Outpatient (CLI) | payer MEDICARE, BC, SELFPAY ==
[2020-08-27 13:58] LABS: Magnesium 1.8 mg/dL (1.8-2.4); Vitamin B12 292 pg/mL (193-986)
[2020-08-29 01:11] LABS: Vitamin D 25 Total 39.5 ng/mL (30-100)
== END 2020-08-27 02:37 | disposition home or self-care (01) ==
LOC: LBO 02:36
PROVIDERS: PCP Student in an Organized Health Care Education/Training Program; Visit Provider Internal Medicine Sleep Medicine
DX: E55.9 Vitamin D deficiency, unspecified (principal); R53.83 Other fatigue; E83.42 Hypomagnesemia; Z79.899 Other long term (current) drug therapy
CPT/HCPCS: 36415; 82306; 82607; 83735

== ENCOUNTER 2020-10-16 07:09 | Outpatient (CLI) | payer MEDICARE, BC, SELFPAY | END 2020-10-16 07:10 | disposition home or self-care (01) | LOC: RT 07:26 | PROVIDERS: PCP Student in an Organized Health Care Education/Training Program; Visit Provider Internal Medicine Sleep Medicine | DX: J45.909 Unspecified asthma, uncomplicated (principal); G47.36 Sleep related hypoventilation in conditions classified elsewhere | CPT/HCPCS: 94762 ==

== ENCOUNTER 2020-10-28 09:27 | Outpatient (CLI) | payer MEDICARE, BC, SELFPAY | END 2020-10-28 09:28 | disposition home or self-care (01) | LOC: RT 09:27 | PROVIDERS: PCP Student in an Organized Health Care Education/Training Program; Visit Provider Internal Medicine Sleep Medicine | DX: G47.36 Sleep related hypoventilation in conditions classified elsewhere (principal); J44.9 Chronic obstructive pulmonary disease, unspecified | CPT/HCPCS: 94762 ==

== ENCOUNTER 2020-11-01 02:21 | Outpatient (CLI) | payer MEDICARE, BC, SELFPAY ==
[2020-11-01 10:00] LABS: FREE T4 1.09 ng/dL (0.76-1.46)
[2020-11-01 10:02] LABS: Anion Gap 13.3 mmol/L (3-11); BUN 16 mg/dL (7-18); CO2 24.7 mmol/L (21.0-32.0); CREATININE 0.8 mg/dL (0.55-1.02); Chloride 106 mmol/L (98-107); Glucose 94 mg/dL (74-106); Potassium 4.4 mmol/L (3.5-5.1); Sodium 144 mmol/L (136-145); TSH (W/Ref FT4) 0.28 uIU/mL (0.36-3.74)
[2020-11-01 16:17] LABS: T3,Free 2.9 pg/mL (2.8-5.3)
== END 2020-11-01 02:22 | disposition home or self-care (01) ==
LOC: LBO 02:21
PROVIDERS: PCP Student in an Organized Health Care Education/Training Program; Visit Provider Student in an Organized Health Care Education/Training Program
DX: E03.9 Hypothyroidism, unspecified (principal); E04.1 Nontoxic single thyroid nodule; R79.89 Other specified abnormal findings of blood chemistry
CPT/HCPCS: 36415; 80048; 84439; 84443; 84481

== ENCOUNTER 2020-11-12 03:59 | Outpatient (CLI) | payer MEDICARE, BC, SELFPAY ==
[2020-11-12] MEDS: Albuterol HFA 18 GM 200 PUFF INH IH (14:48)
[2020-11-12] MEDS: Inhaler, Assist Device 1 EACH MC (14:49)
--- NOTE | 2020-11-12 15:01 | W.PFT ---
Date of service: 11/12/20 Time of Service: 13:10 Pulmonary Function Test Result Requesting Provider Micheline Interpretation Spirometry: There is no airflow limitation. There is no significant bronchodilator response. There is a restrictive pattern to the spirometry. The muscle pressures are normal Lung Volumes: There is mild restriction present Diffusion Capacity: Diffusion is normal Airway Pressure: Waves resistance is normal Impression No airflow limitation, there is mild restriction present with normal muscle pressures. Note: When compared to 09/28/2019 the FEV1 and FVC are essentially unchanged. Clinical Correlation therefore is recommended.
== END 2020-11-12 04:00 | disposition home or self-care (01) ==
PROVIDERS: PCP Student in an Organized Health Care Education/Training Program; Visit Provider Student in an Organized Health Care Education/Training Program
DX: J45.909 Unspecified asthma, uncomplicated (principal)
CPT/HCPCS: 94060; 94726; 94729

== ENCOUNTER 2020-11-21 13:51 | Outpatient (REF) | payer MEDICARE, BC, SELFPAY ==
--- NOTE | 2020-11-21 13:30 | PAPFT_PTH ---
PATIENT: Pilar Ybarra LOC: [facility] U#:[id number] AGE/SX: 70/F ROOM: RE11/21/[address]: ZACH Oneil : 1950 BED: DIS: 11/21/2020 SPEC #: [id number] RECD: 11/21/20 18:27 STATUS: FRANKLYN REPuma #: [id number] [place]: 11/21/20 13:[address]: Lucinda Larsen DEPT: [facility] Cytology RECD BY: Kylah Schneider ENTERED: 11/21/20 18:27 SP TYPE: PAPFT OTHR DR: Gina Marquez, Tissues: 1 - CX/ENDOCX FOR PAP SMEARS Procedures: PAP THIN PREP/UVM Screening HPV DNA PROBE Comments: [id number]
== END 2020-11-21 13:52 | disposition home or self-care (01) ==
LOC: LBN 13:51
PROVIDERS: PCP Student in an Organized Health Care Education/Training Program; Visit Provider Nurse Practitioner Family
DX: Z12.4 Encounter for screening for malignant neoplasm of cervix (principal); Z77.9 Other contact with and (suspected) exposures hazardous to health; Z11.51 Encounter for screening for human papillomavirus (HPV); Z01.419 Encounter for gynecological examination (general) (routine) without abnormal findings
CPT/HCPCS: 88142; 87624

== ENCOUNTER 2020-12-11 01:52 | Outpatient (CLI) | payer MEDICARE, BC, SELFPAY ==
--- NOTE | 2020-12-11 08:30 | DI.MAMMO_ITS ---
Exam(s) MG MAMMO SCREENING 60 MIN DUR EXAM: MG MAMMO SCREENING 60 MIN DUR CLINICAL HISTORY: breast cancer screening,H/O LT BREAST CA,Z85.3,Z12.39. TECHNIQUE: Right breast l full field digital CC and MLO mammographic images were obtained with 3D to mosynthesis and utilizing computer aided detection (CAD). This patient has had prior left mastectomy. COMPARISON: Prior mammograms dating back to 2010, the most recent being October 2019. FINDINGS: There has been no significant change in the appearance and distribution of the fibroglandular tissue of the right breast. Small superficial nodule inferomedially is unchanged from prior studies and is probably a skin mole. There are no new spiculated masses nor malignant appearing microcalcification groups. There is no significant architectural distortion nor skin thickening-retraction. IMPRESSION: Benign findings. No radiographic evidence of malignancy in the right breast. BI-RADS Category 2 - Benign Findings Breast Density - Category B - Scattered areas of fibroglandular density Breast density Category C or D implies that the patient has dense breast tissue. Dense breast tissue can make it harder to find cancer on a mammogram. Dense breast tissue is also associated with an incr eased risk of breast cancer. This information about the result of the mammogram report was provided to the patient to raise their awareness. Use this report when you speak with the patient about their risks for breast cancer, which includes their family history. At that time, you may recommend additional screening tests (Ultrasoun d or MRI) as these tests may add significant information. A negative radiographic report should not delay biopsy if a dominant or clinically suspicious mass is present. Up to ten percent of cancers are not identified on mammography. A negative report may reinforce clinical impression. Adenosis and dense breasts may obscure an underlying neoplasm. False positive reports average 6 to 10%. Patient will receive a letter notifying them of these results.
== END 2020-12-11 02:12 ==
PROVIDERS: PCP Student in an Organized Health Care Education/Training Program; Visit Provider Student in an Organized Health Care Education/Training Program
DX: Z12.31 Encounter for screening mammogram for malignant neoplasm of breast (principal); Z85.3 Personal history of malignant neoplasm of breast; Z90.12 Acquired absence of left breast and nipple
CPT/HCPCS: 77063; 77067

== ENCOUNTER 2021-01-13 03:05 | Outpatient (CLI) | payer MEDICARE, BC, SELFPAY | END 2021-01-13 03:06 | disposition home or self-care (01) | LOC: RT 03:05 | PROVIDERS: PCP Student in an Organized Health Care Education/Training Program; Visit Provider Student in an Organized Health Care Education/Training Program | DX: G47.34 Idiopathic sleep related nonobstructive alveolar hypoventilation (principal) | CPT/HCPCS: 94762 ==

== ENCOUNTER 2021-02-14 01:39 | Outpatient (CLI) | payer MEDICARE, BC, SELFPAY ==
--- NOTE | 2021-02-14 07:45 | DI.CT_ITS ---
Exam(s) CT CHEST HIGH RESOLUTION EXAM: CT CHEST HIGH RESOLUTION CLINICAL HISTORY: Reastrictive lung disease on PFT's,J98.4. TECHNIQUE: Multi planar reconstructions were performed. CONTRAST MATERIAL: None COMPARISON: CR XR CHEST 2V PA LATERAL from 07/12/2018 CR XR CHEST 2V PA LATERAL from 07/12/2018 FINDINGS: CHEST: There has been previous left mastectomy. LUNGS: There mild benign-appearing increased markings in the inferior lingular segment of the left robb ng. There are no other focal findings in either lung field. No pleural effusions. No significant f indings in the trachea and mainstem bronchi. MEDIASTINUM: There is no obvious hilar nor mediastinal adenopathy. Visualized thyroid unremarkable.No obvious axillary adenopathy CARDIAC: Mild cardiomegaly. No pericardial effusion.Caliber of the thoracic aorta is within normal l imits. VISUALIZED UPPER ABDOMEN:No adrenal masses. OSSEOUS: No significant osseous lesions.. IMPRESSION: 1. Benign-appearing increased markings inferior lingular segment left lung. No ominous pulmonary nod ules nor pleural effusions. 2. No obvious intrathoracic adenopathy evident on this noninfused study. 3. No significant interstitial disease. RADIATION DOSE DELIVERED: 704.07mGy.cm Total DLP DATA REPOSITORY: All CT scans at this facility are submitted to the National Radiology Data Registry (NRDR) Dose Index Registry (DIR) with the [employer] (ACR). RADIATION OPTIMIZATION: All CT scans at this facility use at least one of these dose optimization te chniques: automated exposure control; mA and/or kV adjustment per patient size (includes targeted exa ms where dose is matched to clinical indication); or iterative reconstruction.
== END 2021-02-14 01:59 ==
PROVIDERS: PCP Student in an Organized Health Care Education/Training Program; Visit Provider Student in an Organized Health Care Education/Training Program
DX: J98.4 Other disorders of lung (principal)
CPT/HCPCS: 71250

== ENCOUNTER 2021-05-12 03:10 | Outpatient (CLI) | payer MEDICARE, BC, SELFPAY ==
[2021-05-12 11:25] LABS: HCT 42.6 % (36.0-46.0); HGB 14.1 g/dL (11.2-15.7); MCH 29.6 pg (27.0-33.0); MCHC 33.1 % (32.0-36.0); MCV 89.3 fL (80-95); Platelet Count 305 10^3/uL (130-400); RBC 4.77 10^6/uL (3.93-5.22); RDW-SD 42.7 fL; WBC 8.58 10^3/uL (4.4-10.8)
[2021-05-12 12:23] LABS: FREE T4 1.09 ng/dL (0.76-1.46)
[2021-05-12 12:28] LABS: ALT 34 U/L (14-59); AST 23 U/L (15-37); Alkaline Phosphatase 73 U/L (46-116); Anion Gap 7.8 mmol/L (3-11); BUN 17 mg/dL (7-18); Bilirubin, Total 0.2 mg/dL (0.2-1.0); CO2 24.2 mmol/L (21.0-32.0); CREATININE 0.8 mg/dL (0.55-1.02); Calcium 9.2 mg/dL (8.5-10.1); Chloride 105 mmol/L (98-107); Glucose 94 mg/dL (74-106); Potassium 4.3 mmol/L (3.5-5.1); Sodium 137 mmol/L (136-145); TSH (W/Ref FT4) 0.86 uIU/mL (0.36-3.74); Total Protein 7.3 g/dL (6.4-8.2)
[2021-05-12 18:11] LABS: T3,Free 3.1 pg/mL (2.8-5.3)
== END 2021-05-12 03:11 | disposition home or self-care (01) ==
LOC: LBO 03:10
PROVIDERS: PCP Student in an Organized Health Care Education/Training Program; Visit Provider Student in an Organized Health Care Education/Training Program
DX: E06.3 Autoimmune thyroiditis (principal); R03.0 Elevated blood-pressure reading, without diagnosis of hypertension; R79.89 Other specified abnormal findings of blood chemistry; E46 Unspecified protein-calorie malnutrition
CPT/HCPCS: 36415; 80053; 85027; 84439; 84443; 84481

== ENCOUNTER 2021-06-19 00:43 | Outpatient (CLI) | payer MEDICARE, BC, SELFPAY ==
--- NOTE | 2021-06-19 07:45 | DI.US_ITS ---
APPROVED REPORT EXAM: Comprehensive 2D, Doppler, and color-flow Echocardiogram Patient Location: Out-Patient Welfare Eligibility Interviewer: Ayla Petersen RDCS (AE) Indications: Cardiomegaly on CT. Dyspnea on exertion Other Information Study Quality: Fair Conclusion Normal left ventricular wall thickness and chamber size. Estimated ejection fraction is 55 to 60%. Wall motion is normal Normal right ventricular size and systolic function Both atria are normal in size There are no structural valvular abnormalities Mild mitral regurgitation Mild to moderate tricuspid regurgitation. Estimated right ventricular systolic pressure is 29 mmHg Wall motion Left Ventricle The left ventricle is normal size. The left ventricular systolic function is normal. The left ventric ular ejection fraction is within the normal range. There is normal left ventricular wall thickness. T here is normal LV segmental wall motion. There is no ventricular septal defect visualized. LVEF is 59 %. Right Ventricle The right ventricle is normal size. The right ventricular systolic function is normal. The RVSP is 29 .4_ mmHg. Atria The left atrium size is normal. The right atrium size is normal. The interatrial septum is intact wit h no evidence for an atrial septal defect. Aortic Valve The aortic valve is normal in structure. Aortic valve is trileaflet. There is no aortic valvular sten osis. No aortic regurgitation is present. Mitral Valve The mitral valve is normal in structure. No evidence of mitral valve stenosis. Mild mitral regurgitat ion. Tricuspid Valve The tricuspid valve is normal in structure. There is no tricuspid valve stenosis. Mild to moderate tr icuspid regurgitation. Pulmonic Valve The pulmonary valve is normal in structure. There is no pulmonic valvular stenosis. Trace pulmonic re gurgitation. Great Vessels The aortic root is normal in size. The ascending aorta is normal in size. IVC is normal in size and c ollapses >50% with inspiration. Pericardium There is no pericardial effusion. 2D Dimensions IVSD d PLAX 0.79 cm F: 0.6-1.0 LV Vol A2C d MOD 106.0 mL LVPW d PLAX 0.81 cm F: 0.6 - 1.0 LV Vol A4C d MOD 99.9 mL LVID d PLAX 4.67 cm F: 3.8 - 5.2 LA vol/ BSA A4C s A-L 21.8 mL/m2 LVDs 3.15 cm F: 2.2 - 3.5 LA Area A4C s MOD 17.19 cm2 Ao Root d 2.88 cm F: 2.7 - 3.3 LV EF A4C MOD 59.0 % RA Area A4C 14.03 cm2 LV EF A2C MOD 57.1 % RA Vol/ BSA A4C s A-L 14.9 mL/m2 LV EF Biplane MOD 58.6 % Ao Asc Diam d 3.22 cm F: 2.3 - 3.1 SV 60.92 mL LV EF Teichholz 59.8 % SV Index 28.59 mL/m2 LVEF (Rodriguez's) 58.57 % F: 54 - 74 LV Volume 76.41 mL F: 46 - 106 LV Volume Index 35.87 mL/m2 F: 29 - 61 LV Vol Biplane MOD 104.0 mL FS 31.75 % M-Mode TAPSE 2.33 cm (M/F) >1.7 LV Diastology MV E' medial 0.087 (>0.07 m/s) E/A Ratio 0.8 LV E/e MED 7.25 (<14) MV E Vmax 0.63 (0.4-1.3 m/s) MV E' lateral 0.086 (>0.1 m/s) MV A Vmax 0.80 (0.4-1.3 m/s) LV E/e LAT 7.35 (<14) MV E/A Ratio 0.75 MV E/E' medial 7.28 MV E/E' lateral 7.39 Aortic Valve LVOT Area 2.93 cm2 AoV Area Vmax 2.28 cm2 LVOT Vmax 1.17 m/s AoV Area/ BSA (Vmax) 1.07 cm2/m2 LVOT Mean Tank. 0.75 m/s LUDWIN Mean Tank. 2.31 cm2 LVOT Peak Grad 5.5 mmHg LUDWIN Mean Tank. Index 1.08 cm2/m2 LVOT Mean Grad 2.7 mmHg LVOT VTI 0.270 m LVOT Diam s 1.90 cm AoV Vmax 1.51 m/s Velocity Ratio 0.77 AoV Mean Tank. 0.95 m/s AoV Peak Grad 9.1 mmHg LVOT SV 79.24 mL AoV Mean Grad 4.2 mmHg AoV VTI 0.313 m AoV Area VTI 2.53 cm2 AoV Area/ BSA (VTI) 1.19 cm/m2 Mitral Valve MV DT 242 (160-240 msec) MV PHT 70 msec MV Area PHT 3.13 cm2 MV VTI 0.380 m MV Area VTI 2.08 (4.0-6.0 cm2) Pulmonary Valve PV Vmax 0.90 (0.5-1.5 m/s) RVOT Peak Gr. 1.99 mmHg PV Peak Grad 3.3 mmHg RVOT Mean Gr. 1.00 mmHg PV Mean Grad 1.7 mmHg RVOT VTI 0.156 m PV VTI 0.212 m RVOT Vmax 0.71 m/s Tricuspid Valve TR Peak Grad 26.3 mmHg TR Vmax 2.57 m/s RA Pressure 3.00 mmHg RVSP (TR) 29.4 mmHg
== END 2021-06-19 01:03 ==
PROVIDERS: PCP Student in an Organized Health Care Education/Training Program; Visit Provider Student in an Organized Health Care Education/Training Program
DX: I51.7 Cardiomegaly (principal); R06.09 Other forms of dyspnea
CPT/HCPCS: 93306

== ENCOUNTER 2021-07-10 01:58 | Outpatient (CLI) | payer MEDICARE, BC, SELFPAY ==
--- NOTE | 2021-07-10 13:45 | DI.US_ITS ---
Exam(s) US THYROID EXAM: US THYROID CLINICAL HISTORY: THYROID NODULE, E04.1; 1-YEAR F/U TECHNIQUE: Ultrasound performed using standard protocol. COMPARISON: US US ECHOCARDIOGRAM from 06/19/2021 FINDINGS: Thyroid ultrasound was performed according to the usual protocol. Right thyroid lobe measures 43 x 1 4 x 15 millimeters. Left thyroid lobe measures 43 x 15 x 15 millimeters. Thyroid isthmus is about 2 millimeters in thickness. There is heterogeneity of thyroid parenchyma. Multiple nodules are identified. There is a 16 millim eter in diameter nodule of the upper pole of the left thyroid lobe which has characteristics consiste nt with TI-RADS score of TR 4. A 12 millimeter in diameter upper pole lesion of the right thyroid lo be has characteristics consistent with TR 5 classification. Biopsy is recommended for each of these nodules. Additionally an 8 millimeter TR 5 nodule is seen in the inferior pole of the left thyroid lobe which may be followed period IMPRESSION: Biopsy recommended for 2 thyroid nodules as described above, 1 in the upper pole of the left thyroid lobe and the other in the upper pole of the right thyroid lobe. DATA REPOSITORY:
== END 2021-07-10 02:18 ==
PROVIDERS: PCP Student in an Organized Health Care Education/Training Program; Visit Provider Physician Assistant
DX: E04.2 Nontoxic multinodular goiter (principal)
CPT/HCPCS: 76536

== ENCOUNTER 2021-07-11 19:08 | Outpatient (REF) | payer MEDICARE, BC, SELFPAY ==
[2021-07-13 14:25] LABS: COVID-19 RT-PCR UVMMC Result Negative (Negative)
== END 2021-07-11 19:09 | disposition home or self-care (01) ==
LOC: LBN 19:08
PROVIDERS: PCP Student in an Organized Health Care Education/Training Program; Visit Provider Physician Assistant Medical
DX: Z20.822 Contact with and (suspected) exposure to COVID-19 (principal); J06.9 Acute upper respiratory infection, unspecified
CPT/HCPCS: U0003

== ENCOUNTER 2021-11-28 14:20 | Outpatient (REF) | payer MEDICARE, BC, SELFPAY ==
--- NOTE | 2021-11-28 13:40 | PAPFT_PTH ---
PATIENT: Pilar Ybarra LOC: [facility] U#:[id number] AGE/SX: 71/F ROOM: RE11/28/[address]: Chely Evans DO : 1950 BED: DIS: 11/28/2021 SPEC #: [id number] RECD: 11/28/21 17:32 STATUS: FRANKLYN REQ #: [id number] [place]: 11/28/21 13:[address]: Chely Evans DEPT: [facility] Cytology RECD BY: Kylah Schneider ENTERED: 11/28/21 17:33 SP TYPE: PAPFT OTHR DR: Gina Marquez DO Tissues: 1 - CX/ENDOCX FOR PAP SMEARS Procedures: PAP THIN PREP/UVM Screening HPV DNA PROBE Comments: [id number]
== END 2021-11-28 14:21 | disposition home or self-care (01) ==
LOC: LBN 14:20
PROVIDERS: PCP Student in an Organized Health Care Education/Training Program; Visit Provider Obstetrics & Gynecology
DX: Z12.4 Encounter for screening for malignant neoplasm of cervix (principal); Z11.51 Encounter for screening for human papillomavirus (HPV); Z01.419 Encounter for gynecological examination (general) (routine) without abnormal findings
CPT/HCPCS: 88142; 87624

== ENCOUNTER → 2021-12-15 01:49 | Outpatient (CLI) | payer MEDICARE, BC, SELFPAY ==
--- NOTE | 2021-12-15 07:30 | DI.MAMMO_ITS ---
Exam(s) MG MAMMO SCREENING 60 MIN DUR EXAM: MG MAMMO SCREENING 60 MIN DUR CLINICAL HISTORY: breast cancer screening,h/o lt breast ca, z12.39 TECHNIQUE: Right cc and MLO mammogram images were performed according to the usual protocol inclu ding computer analysis with CAD system, tomosynthesis and C-view imaging. COMPARISON: 2013 through 2020 FINDINGS: The right breast is composed of scattered fibroglandular densities, Breast Density category B. No suspicious masses or suspicious microcalcifications are seen. No skin thickening or abnormal axillary lymph nodes are seen. IMPRESSION: BI-RADS Category 1, Negative mammogram Yearly screening mammography is recommended. Breast Density - Category B, scattered fibroglandular densities. A negative radiographic report should not delay biopsy if a dominant or clinically suspicious mass is present. Up to ten percent of cancers are not identified on mammography. A negative report may reinforce clinical impression. Adenosis and dense breasts may obscure an underlying neoplasm. False positive reports average 6 to 10%. Patient will receive a letter notifying them of these results.
== END ==
PROVIDERS: PCP Student in an Organized Health Care Education/Training Program; Visit Provider Obstetrics & Gynecology
DX: Z12.31 Encounter for screening mammogram for malignant neoplasm of breast (principal); Z85.3 Personal history of malignant neoplasm of breast; Z90.12 Acquired absence of left breast and nipple
CPT/HCPCS: 77063; 77067

== ENCOUNTER 2022-02-06 16:23 | Outpatient (REF) | payer MEDICARE, BC, SELFPAY ==
[2022-02-08 01:04] LABS: Influenza A RNA Result Negative (Negative); Influenza B RNA Result Negative (Negative); RSV RNA Result Negative (Negative)
[2022-02-08 01:08] LABS: COVID-19 RT-PCR UVMMC Result Negative (Negative)
== END 2022-02-06 16:24 | disposition home or self-care (01) ==
LOC: LBN 16:23
PROVIDERS: PCP Student in an Organized Health Care Education/Training Program; Visit Provider Student in an Organized Health Care Education/Training Program
DX: Z20.822 Contact with and (suspected) exposure to COVID-19 (principal); R05.8 Other specified cough
CPT/HCPCS: 87631; U0003

== ENCOUNTER 2022-04-01 11:30 | Outpatient (REF) | payer MEDICARE, BC, SELFPAY ==
[2022-04-03 00:20] LABS: Influenza A RNA Result Negative (Negative); Influenza B RNA Result Negative (Negative); RSV RNA Result Negative (Negative)
[2022-04-03 00:30] LABS: COVID-19 RT-PCR UVMMC Result Negative (Negative)
== END 2022-04-01 11:31 | disposition home or self-care (01) ==
LOC: LBN 11:30
PROVIDERS: PCP Student in an Organized Health Care Education/Training Program; Referring Provider Nurse Practitioner; Visit Provider Nurse Practitioner
DX: R53.83 Other fatigue (principal); Z20.822 Contact with and (suspected) exposure to COVID-19; R05.8 Other specified cough
CPT/HCPCS: 87631; U0003

== ENCOUNTER 2022-04-22 04:34 | Outpatient (CLI) | payer MEDICARE, BC, SELFPAY ==
[2022-04-22 11:49] LABS: FREE T4 0.92 ng/dL (0.76-1.46); TSH (W/Ref FT4) 0.93 uIU/mL (0.36-3.74)
[2022-04-22 22:34] LABS: T3,Free 3.4 pg/mL (2.8-5.3)
[2022-04-22 23:45] LABS: Thyroglobulin Antibody 411 U/mL (<=60); Thyroperoxidase Antibody >1300 U/mL (<=60)
== END 2022-04-22 04:35 | disposition home or self-care (01) ==
PROVIDERS: PCP Student in an Organized Health Care Education/Training Program; Visit Provider Student in an Organized Health Care Education/Training Program
DX: E06.3 Autoimmune thyroiditis (principal); R79.89 Other specified abnormal findings of blood chemistry
CPT/HCPCS: 36415; 86376; 84439; 84443; 84481

== ENCOUNTER → 2022-06-08 13:18 | Outpatient (BNVA) | payer MEDICARE, BC, SELFPAY | PROVIDERS: PCP Student in an Organized Health Care Education/Training Program; Referring Provider Student in an Organized Health Care Education/Training Program; Visit Provider Surgery | DX: K21.9 Gastro-esophageal reflux disease without esophagitis (principal); R13.10 Dysphagia, unspecified | CPT/HCPCS: 99203; 99242 ==

== ENCOUNTER 2022-06-30 06:18 | Day surgery (SDC) | payer MEDICARE, BC, SELFPAY ==
--- NOTE | 2022-06-29 11:59 | W.PM.DSUDISC ---
Date of service: 06/30/22 Time of Service: 08:35 Discharge Plan Disposition Patient Disposition: Home Condition: Good Discharge Details Reason For Visit: egd/stomach scope Attending Provider: Ekta Astudillo Primary Care Provider: Gina Marquez Home Meds and New Rx's Prescriptions: Continued flaxseed oil 1,000 mg capsule 2,000 mg PO DAILY Rx Instructions: administer with a meal 05/24/[address] Vallejo per pt. mk NAC 1,200 mg PO QAM Rx Instructions: 05/24/[address] Vallejo. Takes 2 am 1 pm. mk apple pectin 1 cap PO DAILY PRN calcium magnesium 450 mg PO HS Patient Comments: Mg = 144mg, Calcium = 450mg takes 2 tabs daily magnesium 240 mg PO HS Patient Comments: tabs = 120mg (DME) Oxygen Tank See Rx Instructions .ROUTE .MEDSUPPLY Qty: 1 Rx Instructions: As directed 2.5 liters nasal at hs. cholecalciferol (vitamin D3) 50 mcg (2,000 unit) capsule 100 mcg PO DAILY Rx Instructions: 4,000IU CBD oil PO PRN Rx Instructions: QHS multivitamin [Daily Multi-Vitamin] 1 EACH tablet 1 ea PO DAILY tumeric complex 2 cap PO BID Rx Instructions: 3 tabs bid CBD oil PO HS 0RF weighted breast prosthesis 1 unit EXT DAILY Qty: 1 0RF adrenal 2 tab PO DAILY Rx Instructions: 1 cap sertraline 25 mg tablet 25 mg PO DAILY MDD 75 Qty: 90 3RF Rx Instructions: combine with 50mg for 75mg levothyroxine 100 mcg tablet 100 mcg PO DAILY Qty: 90 3RF Hold Instructions: Home Medication placed on hold at Doctor's office sertraline 50 mg tablet 100 mg PO DAILY MDD 75 Qty: 180 1RF Rx Instructions: Trial INCREASE over the winter albuterol sulfate [ProAir HFA] 90 mcg/actuation HFA aerosol inhaler 2 puff IH Q4H PRN (Reason: shortness of breath or wheezing) Qty: 18 2RF budesonide-formoterol [Symbicort] 160-4.5 mcg/actuation HFA aerosol inhaler See Rx Instructions .ROUTE .COMPLEX Qty: 10.2 12RF Dose Instruction: INHALE TWO PUFFS BY MOUTH TWICE A DAY Rx Instructions: INHALE TWO PUFFS BY MOUTH TWICE A DAY acetaminophen [Mapap Extra Strength] 500 MG tablet 1,000 mg PO Q8H PRN PRNQty: 120 0RF Herbal Support Complex 2 cap PO DAILY Patient Comments: 10/29/20 for thyroid per pt. Rx Instructions: FROM [employer] FOR THYROID Discharge Instructions Additional Instructions: Post EGD Instruction ?You had anesthesia for your EGD/stomach scope today.? For your safety, please do the following for the next twenty-four (24) hours: Do Not operate a motor vehicle (car, truck, motorcycle, etc.) Do Not drink alcoholic beverages or use any recreational drugs for the first 24 hours or while taking pain medications. The medications in your body may have a reaction that can be dangerous. Do Not make any important decisions or sign any important papers You have just had a gastroscopy (EGD) or upper GI tract examination. It is important for your smooth recovery that you carefully follow the recommendations below. Do not hesitate to call if any questions should arise about your anesthesia, condition, or care. -Symptoms you may experience during the next 24 hours: ?1. Mild abdominal pain or excessive gas or a bloated feeling which improves with rest, liquids, eating? slightly, and walking as tolerated. 2. Drowsiness and/or forgetfulness because of the medications you were given. ?3. Throat numbness for about 1 hour. 4. A sore throat which you can treat with throat lozenges or by gargling with salt water 4-5 times a day. 5. Redness at the site of your IV which you can treat with warm compresses. SPECIAL INSTRUCTIONS: 1. You may resume your previous diet in one hour. We recommend a light meal to start, then progress as tolerated. 2. Restart regular medications in one hour. 3. No aspirin or non-steroidal containing medication for three days. 4. No lifting over 20 pounds or strenuous activity for the first 24 hours after your procedure. After 24 hours there are no restrictions on your activity, but you may feel fatigued for a few days. Findings: hiatal hernia Treatment: -Continue to follow lifestyle modifications: No alcohol, tobacco products, Aspirin or NSAID's (ibuprofen, Motrin, Naprosyn, aleve, etc).? Try to limit/avoid:? soda pop/any carbonated beverages, caffeine (including tea & chocolate), and acidic foods, (tomatoes, citrus, onions, peppermints) spicy or fried/fatty foods. Do not lie down for 30 minutes after eating, and do not eat 2 hours prior to bedtime. Avoid wearing tight fitting clothing/ belts. Follow up: -My office will send a letter with the results of your biopsy?s in 2-3wks time. Call the office at [phone] (Office) or [phone] (Hospital), or go to the ER right away if you notice any of the followin. Vomiting blood and /or ?coffee ground? material. ?2. Worsening of abdominal pain or cramping. ?3. Trouble with breathing, cough, and/or fever (temperature above 101.5 F). 4. Increasing pain with swallowing. ?5. Chest pain. 6. Any new symptoms. 7. Worsening of the redness at the IV site Activity:: see above Diet:: see kamryn Discharge Orders Discharge Orders: Discharge Order (Routine); Ordered 06/30/22 Ordered By: Ekta Astudillo DS: Diagnosis Discharge Diagnosis (1) Obstructive sleep apnea syndrome: Status: Chronic (2) Chronic obstructive pulmonary disease (COPD): Status: Chronic (3) Asthma: Status: Chronic (4) Restrictive lung disease: Status: Acute (5) Gastro-esophageal reflux disease without esophagitis: Status: Ruled-out (6) LPRD (laryngopharyngeal reflux disease): Status: Acute (7) Spinal stenosis of lumbar region: Status: Chronic (8) Hyperlipidemia: Status: Chronic (9) 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
--- NOTE | 2022-06-30 04:47 | ANES.PREOP_ITS ---
General Info Date of Service Date Performed: 06/30/22 Height: 5 ft 10 in Weight: 96.162 kg Body Mass Index (BMI): 30.4 Surgical Procedure: Operation Date: 06/30/22 07:35 Proposed Procedure Side Surgeon p Gastroscopy Ekta Astudillo, DO Meds Allergies and Home Medications Allergies Allergy/AdvReac Type Severity Reaction Status Date / Time celecoxib [From Celebrex] Allergy Intermediate rash Verified 06/30/22 06:34 NSAIDS (Non-Steroidal Allergy Intermediate Hives Verified 06/30/22 06:34 Anti-Inflamma adhesive AdvReac LG LOCAL Verified 06/30/22 06:34 REACTION codeine [Codeine] AdvReac DIZZINESS/L Verified 06/30/22 06:34 IGHTHEADEDN ESS FRAGRANCES Allergy Mild Skin Rash Uncoded 06/30/22 06:34 chlorine AdvReac Mild Skin Rash Uncoded 06/30/22 06:34 Home Medication Medication Instructions Recorded Tumeric Complex 2 cap PO BID 04/18/15 multivitamin (Daily Multi-Vitamin 1 ea PO DAILY 04/18/15 tablet) acetaminophen 500 mg tablet (Mapap 1,000 mg PO Q8H PRN PRN #120 tabs 01/29/17 Extra Strength) weighted breast prosthesis 1 unit EXT DAILY #1 unit 08/01/18 NAC 1,200 mg PO QAM 05/25/19 flaxseed oil 1,000 mg capsule 2,000 mg PO DAILY 05/25/19 adrenal 2 tab PO DAILY 10/29/20 calcium magnesium 450 mg PO HS 10/29/20 magnesium 240 mg PO HS 10/29/20 Oxygen #1 ea 12/19/20 Herbal Support Complex 2 cap PO DAILY 05/06/21 cholecalciferol (vitamin D3) 50 100 mcg PO DAILY 05/06/21 mcg (2,000 unit) capsule sertraline 25 mg tablet 25 mg PO DAILY #90 tabs 12/01/21 levothyroxine 100 mcg tablet 100 mcg PO DAILY #90 tab-caps 03/03/22 sertraline 50 mg tablet 100 mg PO DAILY #180 tab-caps 04/22/22 albuterol sulfate 90 mcg/actuation 2 puff inhalation Q4H PRN 05/19/22 aerosol inhaler (ProAir HFA) shortness of breath or wheezing #18 grams CBD PO PRN 06/08/22 apple pectin 1 cap PO DAILY PRN 06/08/22 budesonide-formoterol HFA 160 See Rx Instructions .Route 06/09/22 mcg-4.5 mcg/actuation aerosol .COMPLEX #10.2 grams inhaler (Symbicort) Current Visit Medications: Current Medications Generic Name Dose Route Start Last Admin Trade Name Freq PRN Reason Stop Dose Admin Hyoscyamine Sulfate 0.125 mg 06/30/22 07:57 Hyoscyamine 0.125 Mg Sl/Oral/Chew SL DIRECTED PRN Ringer's Solution 1,000 mls @ 80 mls/hr 06/30/22 06:00 IV 06/30/22 23:59 INFUSION [facility] IV Miscellaneous Supplies 1 each 06/30/22 06:00 Iv Access IV 06/30/22 23:59 DIRECTED [facility] Ondansetron HCl 4 mg 06/30/22 11:57 Ondansetron 4 Mg/2 Ml Vial IVP Q4H PRN PRN Nausea / Vomiting Sodium Chloride 0 ml 06/30/22 06:00 Normal Saline Flush 10 Ml Syr IV 06/30/22 23:59 PRN PRN Sodium Chloride 0 ml 06/30/22 06:00 Normal Saline 10 Ml Vial IJ 06/30/22 23:59 DIRECTED PRN Sterile Water 0 ml 06/30/22 06:00 Water,Injection,Sterile 10 Ml Vial IJ 06/30/22 23:59 DIRECTED PRN PFSH Active Problems Active Problems: Problem Status Onset Code History of use of hearing aid in both ears Z92.89 Sensorineural hearing loss H90.5 Right knee pain M25.561 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.89 Obstructive sleep apnea syndrome G47.33 Neuropathy G62.9 Asthma 07/27/12 J45.909 Chronic obstructive pulmonary disease (COPD) J44.9 Restrictive lung disease J98.4 Morning headache R51.9 Nocturnal hypoxia G47.34 Racheal thyroiditis, 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 Low serum triiodothyronine (T3) R79.89 Dysphagia R13.10 LPRD (laryngopharyngeal reflux disease) K21.9 History of left breast cancer Z85.3 Invasive ductal carcinoma of left breast 07/15/15 C50.912 Thyroid nodule E04.1 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 resolved with PT Primary osteoarthritis of left hip (08/13/16) S/p hip replacement Primary osteoarthritis of right hip (10/28/16) S/p hip replacement Medical History Comments:: Per pt. states he mothers BP and pulse used to drop with anesthesia and on occasion her's would too. Surgical History Surgical History Appendectomy (~1989) Breast, Mastectomy (08/09/15) left w/ sentinel lymph node bx. [facility] [place], [place] Colonoscopy - IV Sedation 2007 History of bilateral hip replacements LEFT: 06/30/16; RIGHT: 01/28/17 History of cataract extraction Bilateral Hx of adenoidectomy Hx of tonsillectomy S/P cryotherapy of skin lesion (04/16/22) [facility] [place] [place] Derm Dr. Dorado : R flank x1, L shoulder x1, L chest x1, per 04/16/22 [facility] [place] [place] note.HE Ultrasound guided automated core biopsy, left breast (07/15/15) [facility] [place] [place] Radiologist Loretta Loera MD Tobacco Smoking/Tobacco Use Status: Never Alcohol Alcohol Intake: current Alcohol intake frequency: a few times a week Alcohol type: wine Substance Use Substance use: Never Substance use type: does not use Vital Signs and Lab Results Vital Signs Most Recent Vital Signs in EMR: Temp Pulse Resp BP Pulse Ox 36.4 C L 76 18 133/85 96 06/30/22 06:40 06/30/22 06:40 06/30/22 06:40 06/30/22 06:40 06/30/22 06:40 Lab Results Blood Type / Crossmatch: 2 No Data to Display Complete Blood Count: No Data to Display Complete Metabolic Panel: No Data to Display Liver Function Panel: No Data to Display Coagulation Panel: No Data to Display Cardiac Panel: No Data to Display Arterial Blood Gas: No Data to Display Venous Blood Gas: No Data to Display Pancreas Panel: No Data to Display Thyroid Panel: No Data to Display Infectious Disease: No Data to Display Blood Cultures: No Data to Display Toxicology Panel: No Data to Display Imaging and Studies Imaging and Studies Study information below may be from another EMR and interpreted by another provider. Please see original notes in EMR for more complete details. Stress Test Summary: 10/2018: negative, target HR achieved. Echocardiogram Summary: 10/31: LVEF 55-60%, mild MR, mild to mod TR. Pulmonary Function Summary: 11/02: no airflow limitation, mild restriction, normal diffusion. Anesthesia Assessment and Plan Anesthesia History Personal History: No History of Anesthesia Complications Family History: Other Exercise Tolerance Exercise Tolerance: Metabolic Equivalents>4 Cardiac & Pulmonary Exam Cardiac Exam: Normal S1/S2 Heart Sounds Pulmonary Exam: Clear Bilateral Breath Sounds Implantable Cardiac Device Does patient have a Pacemaker or an ICD?: No Airway Exam Known Difficult Airway: No Mallampati Class: 3 Mouth Opening: Narrow (< 3cm) Thyromental Distance: Greater than 3 cm Neck Range of Motion: Full ROM Neck Circumference: Normal Teeth Condition: Loose or Chipped (few fronts) ASA Classification ASA Score: ASA 2 Emergency Case?: No NPO Status NPO Status: NPO Clears >2 hours, Solids >8 hours Anesthesia Plan Resuscitation Status: Full Code Anesthesia Technique: General Anesthesia Airway Planned: Natural Airway Monitors Used: Standard Monitors Preoperative Comments:: 72 yo female for EGD. Sig PMHx: mild restrictive lung dz/asthma (on Symbicort, occ albuterol), CORY (O2 at night), spinal stenosis/neuropathy (had foot drop, with PT has done very well with resolution of foot drop), GERD, hypothyroid (on replacement), breast CA (no chemo), depression, never smoker, occ EtOH. Previous Anes: - GUICHO, spinal, prop sedation, no issues x 2. - colo, fent/midaz/prop, no issues.
[2022-06-30 06:40] VITALS: BP 133/85; PULSE 76; RESP 18; TEMP 36.4; O2SAT 96
[2022-06-30 06:52] VITALS: BMI 30.4
[2022-06-30] MEDS: Lactated Ringers 1,000 ML 80 ML IV (07:05)
--- NOTE | 2022-06-30 08:09 | STOM_PTH ---
PATIENT: Pilar Ybarra LOC: [facility] U#:[id number] AGE/SX: 72/F ROOM: RE06/30/[address]: Ekta Astudillo : 1950 BED: DIS: 06/30/2022 SPEC #: [id number] RECD: 06/30/22 12:36 STATUS: FRANKLYN REQ #: [id number] [place]: 06/30/22 08:[address]: Ekta Astudillo DEPT: Surgical Specimen RECD BY: Kylah Schneider ENTERED: 06/30/22 12:36 SP TYPE: STOMACH OTHR DR: Gina Marquez DO Tissues: 1 - BIOPSY BOWEL 2 - STOMACH BIOPSY 3 - STOMACH BIOPSY 4 - ESOPHAGUS BIOPSY 5 - ESOPHAGUS BIOPSY Procedures: GROSS AND MICRO LEVEL 4 Comments: [id number]
[2022-06-30 08:29] VITALS: BP 130/69; PULSE 70; RESP 16; TEMP 36.4; O2SAT 94
--- NOTE | 2022-06-30 08:30 | W.PM.OP ---
Date of service: 06/30/22 Time of Service: 08:30 Operative Note Operative Note DATE OF PROCEDURE: 06/30/22 PRE-OP DIAGNOSIS: Gerd POST-OP DIAGNOSIS: other (hiatal hernia) SURGEON: Ekta Astudillo ANESTHESIA TYPE: General:No Airway Refer to Anesthesia Record ESTIMATED BLOOD LOSS: 1 PATHOLOGY: other COMPLICATIONS: None Patient was transported to: same day Patient's condition: stable Procedure Description: After informed consent was obtained the patient was take to the procedure room and placed in a supine position. Monitors were applied and a time out was done. The patients name, date of , procedure type, allergies to medications and metal in their body was reviewed. A bite block was placed and the patient was sedated. Once sedated and comfortable the gastroscope was advanced through the oropharynx which was grossly normal into the esophagus. The proximal and mid-esophagus were normal esophageal. there were no erosions, varices, diverticula, or stricture apparent in the distal esophagus. The scope was advanced into the stomach and through the pylorus into the 3rd portion of the duodenum. The duodenum was noted to be normal, without duodenitis, ulcers, masses.. Biopsies were done, all specimens are retrieved and no bleeding is noted. The scope was retracted back into the stomach and biopsies were done to rule out H. pylori. There was no gastritis, polyps,, masses, or ulcers. The scope was retroflexed. The cardia and fundus were noted to be normal. There 3cm sliding type a hiatal hernia noted. The scope was retracted back into the esophagus and biopsies were done of the GE junction to rule out Lezama's. The Z line was irregular. The GE junction was at 40, and the hiatal hernia at 43 cm. The scope was removed and the patient was woken up and taken back to [facility] in stable condition. Follow up: Appointment was made. See PACU orders
--- NOTE | 2022-06-30 08:41 | W.ANESPOSTOP ---
Postoperative Evaluation Date, Time and Location Date Performed: 06/30/22 Time Performed: 08:41 Patient Location: Day Surgery Unit Vital Signs Most Recent Imported Vital Signs: Most Recent Vital Signs Temp Pulse Resp BP Pulse Ox 36.4 C L 70 16 130/69 94 06/30/22 08:29 06/30/22 08:29 06/30/22 08:29 06/30/22 08:29 06/30/22 08:29 Pain Score Most Recent Pain Score: Most Recent Pain Score Pain Level 0 06/30/22 08:29 Assessment Mental Status: Awake (Alert & Oriented to Patient Baseline) Airway and Respiratory Function: Patent airway with normal (patient baseline) respiratory exam Cardiovascular Function: Hemodynamically Stable Hydration Status: Adequately Hydrated Nausea & Vomiting: No Nausea or Vomiting Pain: Pt. Denies Any Pain Peripheral Nerve Block: Patient did not receive a nerve block
[2022-06-30 09:01] VITALS: BP 116/57; PULSE 58; RESP 18; TEMP 36.7; O2SAT 96
== END 2022-06-30 09:05 | disposition home or self-care (01) ==
PROVIDERS: PCP Student in an Organized Health Care Education/Training Program; Visit Provider Surgery
PROC: 0DJ68ZZ Inspection of Stomach, Via Natural or Artificial Opening Endoscopic (ICD-10-PCS; CPT 43235; principal; 2022-06-30 07:30)
DX: K21.9 Gastro-esophageal reflux disease without esophagitis (principal); K44.9 Diaphragmatic hernia without obstruction or gangrene; J44.9 Chronic obstructive pulmonary disease, unspecified; G47.33 Obstructive sleep apnea (adult) (pediatric)
CPT/HCPCS: 43239; 88305; J2704

== ENCOUNTER → 2022-07-13 08:53 | Outpatient (BNVA) | payer MEDICARE, BC, SELFPAY | PROVIDERS: PCP Student in an Organized Health Care Education/Training Program; Referring Provider Student in an Organized Health Care Education/Training Program; Visit Provider Surgery | DX: Z48.815 Encounter for surgical aftercare following surgery on the digestive system (principal); K44.9 Diaphragmatic hernia without obstruction or gangrene; K21.9 Gastro-esophageal reflux disease without esophagitis; R13.10 Dysphagia, unspecified | CPT/HCPCS: 99213 ==

== ENCOUNTER 2022-07-17 02:08 | Outpatient (CLI) | payer MEDICARE, BC, SELFPAY ==
[2022-07-17 13:57] LABS: TSH (W/Ref FT4) 0.12 uIU/mL (0.36-3.74)
[2022-07-17 14:16] LABS: FREE T4 1.08 ng/dL (0.76-1.46)
== END 2022-07-17 02:09 | disposition home or self-care (01) ==
LOC: LBO 02:09
PROVIDERS: PCP Student in an Organized Health Care Education/Training Program; Visit Provider Student in an Organized Health Care Education/Training Program
DX: E04.1 Nontoxic single thyroid nodule (principal); E06.3 Autoimmune thyroiditis; R79.89 Other specified abnormal findings of blood chemistry
CPT/HCPCS: 36415; 84439; 84443; 84481

== ENCOUNTER 2022-10-06 02:04 | Outpatient (CLI) | payer MEDICARE, BC, SELFPAY ==
--- NOTE | 2022-10-06 07:15 | DI.MRI_ITS ---
Exam(s) MR IAC BRAIN WO/W EXAM: MR IAC BRAIN WO/W CLINICAL HISTORY: L>R sensorineural hearing loss,h90.3 TECHNIQUE: Multiplanar multisequence MRI of the brain was performed. Both noninfused and contrast i nfused sequences were performed. IV Contrast injected was cc Dotarem. COMPARISON: No exams were available for comparison FINDINGS: CEREBRAL PARENCHYMA: No evidence of intracranial hemorrhage, mass effect nor shift of midline structu re. No extraaxial fluid collections. Ventricles are not enlarged nor shifted. There is no significant focal signal abnormality in the cerebellar hemispheres nor within the janet, m idbrain, and thalami. The multiple foci of sub cm FLAIR bright signal abnormality in the periventricular white matter consi stent with chronic small vessel disease. These are not associated with hemorrhage, surrounding edema , nor enhancement following contrast injection. DWI: No areas of restricted diffusion to suggest acute ischemic event. SWI: No microhemorrhages evident. There are no ring enhancing lesions in the brain. There is no abnormal meningeal enhancement. IAC'S: No masses in the cerebellopontine angles. No enhancing intra canalicular lesions. PITUITARY GLAND: No mass nor parasellar abnormality. No obvious abnormality in the cavernous sinuses. FLOW VOIDS: The expected flow void are noted. No evidence of obvious aneurysm nor obvious vascular ma lformation. PARANASAL SINUSES: The visualized paranasal sinuses appear unremarkable. ORBITS: No obvious abnormal findings. IMPRESSION: 1. No evidence of acoustic neuroma-schwannoma. 2. There are multiple foci of FLAIR bright periventricular white matter signal abnormalities consiste nt with chronic small vessel disease. 3. There are no ring enhancing lesions in the brain and there is no abnormal meningeal enhancement. DATA REPOSITORY:
[2022-10-06] MEDS: Normal Saline Flush 10 ML SYR IVP (09:43)
[2022-10-06] MEDS: Gadoterate meglumine 20 ML SYRINGE 19 ML IVP (09:44)
[2022-10-06 10:05] LABS: Vitamin D 25 Total 32.9 ng/mL (30-100)
[2022-10-06 10:18] LABS: CREATININE 0.8 mg/dL (0.55-1.02); Estimated GFR 78.24 (mL/min/1.73m2); Vitamin B12 280 pg/mL (193-986)
== END 2022-10-06 02:24 ==
LOC: DI 02:05
PROVIDERS: PCP Student in an Organized Health Care Education/Training Program; Visit Provider Otolaryngology
DX: H90.3 Sensorineural hearing loss, bilateral; I67.89 Other cerebrovascular disease
CPT/HCPCS: 70553; 82306; 82565; 82607

== ENCOUNTER 2022-12-10 11:58 | Outpatient (REF) | payer MEDICARE, BC, SELFPAY ==
--- NOTE | 2022-12-10 11:30 | PAPFT_PTH ---
PATIENT: Pilar Ybarra LOC: [facility] U#:[id number] AGE/SX: 72/F ROOM: RE12/10/[address]: Chely Evans DO : 1950 BED: DIS: 12/10/2022 SPEC #: [id number] RECD: 12/10/22 18:01 STATUS: FRANKLYN REPuma #: [id number] [place]: 12/10/22 11:[address]: Chely Evans DEPT: [facility] Cytology RECD BY: Kylah Schneider ENTERED: 12/10/22 18:02 SP TYPE: PAPFT OTHR DR: Gina Marquez DO Tissues: 1 - CX/ENDOCX FOR PAP SMEARS Procedures: PAP THIN PREP/UVM Screening HPV DNA PROBE Comments: [id number]
== END 2022-12-10 11:59 | disposition home or self-care (01) ==
LOC: LBN 11:58
PROVIDERS: PCP Student in an Organized Health Care Education/Training Program; Visit Provider Obstetrics & Gynecology
DX: Z11.51 Encounter for screening for human papillomavirus (HPV) (principal); Z01.419 Encounter for gynecological examination (general) (routine) without abnormal findings
CPT/HCPCS: 88142; 87624

== ENCOUNTER → 2022-12-28 01:35 | Outpatient (CLI) | payer MEDICARE, BC, SELFPAY ==
--- NOTE | 2022-12-28 08:15 | DI.MAMMO_ITS ---
Exam(s) MG MAMMO SCREENING 60 MIN DUR EXAM: MG MAMMO SCREENING 60 MIN DUR CLINICAL HISTORY: breast cancer screening,PERSONAL H/O BREAST CA,Z12.39,C50.912. TECHNIQUE: Craniocaudal and mediolateral oblique Full Field Digital Mammography views of the right b reast with Computer Aided Diagnosis. COMPARISON: Comparison is made with prior examinations. FINDINGS: The patient is status post left mastectomy. Mammography/Tomosynthesis: Masses/Architectural Distortion: None seen. Microcalcifictions: No suspicious pleomorphic-type are seen. Skin Thickening/Nipple Retraction: None. IMPRESSION: 1. No evidence of malignancy is noted. 2. Unless there is more urgent need, follow-up screening mammography is recommended, as per [place] [employer] guidelines. 3. The findings were discussed with the patient on the date of the examination. BI-RADS Category 1 - Negative Breast Density - Category B - Scattered areas of fibroglandular density Breast density Category C or D implies that the patient has dense breast tissue. Dense breast tissue can make it harder to find cancer on a mammogram. Dense breast tissue is also associated with an incr eased risk of breast cancer. This information about the result of the mammogram report was provided to the patient to raise their awareness. Use this report when you speak with the patient about their risks for breast cancer, which includes their family history. At that time, you may recommend additional screening tests (Ultrasoun d or MRI) as these tests may add significant information. A negative radiographic report should not delay biopsy if a dominant or clinically suspicious mass is present. Up to ten percent of cancers are not identified on mammography. A negative report may reinforce clinical impression. Adenosis and dense breasts may obscure an underlying neoplasm. False positive reports average 6 to 10%. Patient will receive a letter notifying them of these results.
== END ==
PROVIDERS: PCP Student in an Organized Health Care Education/Training Program; Visit Provider Obstetrics & Gynecology
DX: C50.912 Malignant neoplasm of unspecified site of left female breast (principal); Z12.39 Encounter for other screening for malignant neoplasm of breast
CPT/HCPCS: 77063; 77067

== ENCOUNTER 2023-01-21 02:33 | Outpatient (CLI) | payer MEDICARE, BC, SELFPAY ==
[2023-01-21 17:31] LABS: Ferritin 217 ng/mL (8-252)
== END 2023-01-21 02:34 | disposition home or self-care (01) ==
LOC: LBO 02:34
PROVIDERS: PCP Nurse Practitioner Adult Health; Visit Provider Nurse Practitioner
DX: G47.33 Obstructive sleep apnea (adult) (pediatric) (principal); G47.34 Idiopathic sleep related nonobstructive alveolar hypoventilation; G47.61 Periodic limb movement disorder; G25.81 Restless legs syndrome; M25.50 Pain in unspecified joint
CPT/HCPCS: 36415; 82728

== ENCOUNTER → 2023-03-22 22:24 | Outpatient (CLI) | payer MEDICARE, BC, SELFPAY ==
--- NOTE | 2023-03-22 11:30 | DI.US_ITS ---
Exam(s) US LOWER EXTREMITY VENOUS RT EXAM: US LOWER EXTREMITY VENOUS RT CLINICAL HISTORY: r/o DVT I83.811 VARICOSE VEINS RT LEG TECHNIQUE: Right lower extremity venous ultrasound performed using grayscale, color-flow, and spectr al Doppler analysis. COMPARISON: No exams were available for comparison FINDINGS: The right common femoral, femoral and popliteal veins demonstrate normal compressibility, augmentatio n, and color Doppler. The posterior tibial veins are patent. There is thrombus seen in the greater s aphenous vein beginning 4 cm from the saphenofemoral junction. It is 8 cm in length. There is also thrombus seen in the small saphenous vein. There is no evidence of a Hernandez cyst. The soft tissues a re unremarkable. IMPRESSION: 1. No evidence of a right lower extremity DVT. 2. Superficial thrombophlebitis. DATA REPOSITORY:
== END ==
PROVIDERS: PCP Nurse Practitioner Adult Health; Visit Provider Nurse Practitioner Adult Health
DX: I83.811 Varicose veins of right lower extremity with pain (principal)
CPT/HCPCS: 93971

== ENCOUNTER 2023-04-06 03:52 | Outpatient (CLI) | payer MEDICARE, BC, SELFPAY ==
[2023-04-06 16:44] LABS: Ferritin 187 ng/mL (8-252)
== END 2023-04-06 03:53 | disposition home or self-care (01) ==
LOC: LBO 03:53
PROVIDERS: PCP Nurse Practitioner Adult Health; Visit Provider Nurse Practitioner
DX: G47.33 Obstructive sleep apnea (adult) (pediatric) (principal); G47.34 Idiopathic sleep related nonobstructive alveolar hypoventilation; G25.81 Restless legs syndrome
CPT/HCPCS: 36415; 82728

== ENCOUNTER → 2023-06-10 08:01 | Outpatient (BNVA) | payer MEDICARE, BC, SELFPAY | PROVIDERS: PCP Nurse Practitioner Adult Health; Referring Provider Nurse Practitioner Adult Health; Visit Provider Physician Assistant Surgical | DX: J45.40 Moderate persistent asthma, uncomplicated (principal); G47.33 Obstructive sleep apnea (adult) (pediatric) | CPT/HCPCS: 99215 ==

== ENCOUNTER 2023-06-11 14:46 | Outpatient (RCR) | payer MEDICARE, BC, SELFPAY | END 2023-06-13 23:59 | disposition home or self-care (01) | LOC: PRC 14:46 | PROVIDERS: PCP Nurse Practitioner Adult Health; Referring Provider Physician Assistant Surgical; Visit Provider Student in an Organized Health Care Education/Training Program | DX: J45.909 Unspecified asthma, uncomplicated (principal) ==

== ENCOUNTER 2023-07-01 04:55 | Outpatient (CLI) | payer MEDICARE, BC, SELFPAY ==
[2023-07-01 08:30] LABS: Anion Gap 9.1 mmol/L (3-11); BUN 17 mg/dL (7-18); CO2 25.9 mmol/L (21.0-32.0); CREATININE 0.8 mg/dL (0.55-1.02); Calcium 8.9 mg/dL (8.5-10.1); Chloride 107 mmol/L (98-107); Estimated GFR 77.75 (mL/min/1.73m2); FREE T4 1.06 ng/dL (0.76-1.46); Glucose 97 mg/dL (74-106); Potassium 4.2 mmol/L (3.5-5.1); Sodium 142 mmol/L (136-145); TSH 0.66 uIU/Ml (0.36-3.74)
[2023-07-01 18:24] LABS: T3, Total 124 ng/dL (97-169)
== END 2023-07-01 04:56 | disposition home or self-care (01) ==
LOC: LBO 04:56
PROVIDERS: PCP Nurse Practitioner Adult Health; Referring Provider Nurse Practitioner Adult Health; Visit Provider Nurse Practitioner Adult Health
DX: E06.3 Autoimmune thyroiditis (principal); Z51.81 Encounter for therapeutic drug level monitoring
CPT/HCPCS: 36415; 80048; 84439; 84443; 84480

== ENCOUNTER 2023-07-12 14:52 | Outpatient (RCR) | payer MEDICARE, BC, SELFPAY | END 2023-07-13 23:59 | disposition home or self-care (01) | LOC: PRC 14:52 | PROVIDERS: PCP Nurse Practitioner Adult Health; Referring Provider Physician Assistant Surgical; Visit Provider Student in an Organized Health Care Education/Training Program | DX: J45.909 Unspecified asthma, uncomplicated (principal); G47.33 Obstructive sleep apnea (adult) (pediatric) | CPT/HCPCS: 94626 ==

== ENCOUNTER 2023-08-13 14:00 | Outpatient (RCR) | payer MEDICARE, BC, SELFPAY | END 2023-08-13 23:59 | disposition home or self-care (01) | LOC: PRC 14:00 | PROVIDERS: PCP Nurse Practitioner Adult Health; Referring Provider Physician Assistant Surgical; Visit Provider Student in an Organized Health Care Education/Training Program | DX: J45.909 Unspecified asthma, uncomplicated (principal); G47.33 Obstructive sleep apnea (adult) (pediatric) | CPT/HCPCS: 94626 ==

== ENCOUNTER 2023-08-27 14:00 | Outpatient (RCR) | payer MEDICARE, BC, SELFPAY ==
--- NOTE | 2023-08-30 12:55 | W.PFT ---
Date of service: 08/27/23 Time of Service: 14:35 Pulmonary Function Test Result Indications: Pulmonary rehab completion Interpretation Spirometry: There is no airflow limitation. There is restrictive spirometry. Impression Restrictive spirometry Clinical Correlation therefore is recommended.
== END 2023-09-12 23:59 | disposition home or self-care (01) ==
LOC: PRC 14:00
PROVIDERS: PCP Nurse Practitioner Adult Health; Referring Provider Physician Assistant Surgical; Visit Provider Student in an Organized Health Care Education/Training Program
DX: J45.909 Unspecified asthma, uncomplicated (principal); G47.33 Obstructive sleep apnea (adult) (pediatric)
CPT/HCPCS: 94626

== ENCOUNTER 2023-09-13 14:20 | Outpatient (CLI) | payer MEDICARE, BC, SELFPAY ==
--- NOTE | 2023-09-13 13:00 | DI.RAD_ITS ---
Exam(s) XR KNEE RT 3V AP,LAT,JULIAN EXAM: XR KNEE RT 3V AP,LAT,JULIAN CLINICAL HISTORY: RIGHT KNEE PAIN. TECHNIQUE: 2D digital imaging was performed of the right knee. Three views obtained. AP, lateral an d PA tunnel views were obtained. COMPARISON: CR XR knee RT 3V AP,lat,julian from 06/03/2018 FINDINGS: BONES: No acute fracture is present. No bony destructive lesion is seen. There are enthesophytes at t he anterior aspect of the patella. JOINTS: There is moderate narrowing of the lateral femoral tibial joint and mild narrowing of the pat ellofemoral joint. There osteophytes seen in the lateral femoral tibial joint space. No joint effus ion is seen. SOFT TISSUE: Normal. IMPRESSION: Moderate osteoarthritis of the right knee. DATA REPOSITORY: RADIATION DOSE DELIVERED:
== END 2023-09-13 14:21 | disposition home or self-care (01) ==
LOC: DIORS 14:20
PROVIDERS: PCP Nurse Practitioner Adult Health; Referring Provider Nurse Practitioner Adult Health; Visit Provider Physician Assistant
DX: G89.29 Other chronic pain; M17.11 Unilateral primary osteoarthritis, right knee
CPT/HCPCS: 73562; 99213

== ENCOUNTER → 2023-11-01 09:41 | Outpatient (BNVA) | payer MEDICARE, BC, SELFPAY | PROVIDERS: PCP Nurse Practitioner Adult Health; Referring Provider Nurse Practitioner Adult Health | DX: M17.11 Unilateral primary osteoarthritis, right knee (principal) | CPT/HCPCS: 20610; J1010 ==

== ENCOUNTER → 2023-11-22 09:05 | Outpatient (BNVA) | payer MEDICARE, BC, SELFPAY | PROVIDERS: PCP Nurse Practitioner Adult Health; Referring Provider Student in an Organized Health Care Education/Training Program; Visit Provider Physician Assistant Surgical | DX: J45.40 Moderate persistent asthma, uncomplicated (principal); J98.4 Other disorders of lung; G47.33 Obstructive sleep apnea (adult) (pediatric); Z85.3 Personal history of malignant neoplasm of breast | CPT/HCPCS: 99214 ==

== ENCOUNTER → 2024-02-03 09:22 | Outpatient (BNVA) | payer MEDICARE, BC, SELFPAY | PROVIDERS: PCP Nurse Practitioner Adult Health; Referring Provider Nurse Practitioner Adult Health; Visit Provider Student in an Organized Health Care Education/Training Program | DX: M17.11 Unilateral primary osteoarthritis, right knee (principal) | CPT/HCPCS: 99213 ==

== ENCOUNTER 2024-02-20 12:26 | Emergency (ER) | payer MEDICARE, BC, SELFPAY ==
[2024-02-20] VITALS (24 sets, daily range): BP systolic 139–176; BP diastolic 61–93; PULSE 55–70; RESP 14–22; TEMP 36.9; O2SAT 94–97
--- NOTE | 2024-02-20 12:15 | RT.EKG_ITS ---
APPROVED REPORT Exam: Resting ECG Reason for Exam: dizzy, right arm pain Patient Location: E HR:65 bpm ECG Measurements Heart Rate 65 AXIS MT 161 P 72 QRSd 77 QRS -9 QT 389 T 18 QTc 406 Conclusion Sinus rhythm [address] specific [address] depression no stemi
[2024-02-20 13:18] LABS: Abs Immature Grans 0.03 10^3/uL (0.0-0.06); Absolute Basophil Count 0.05 10^3/uL (0.0-0.2); Absolute Eosinophil Count 0.11 10^3/uL (0.0-0.7); Absolute Lymphocyte Count 2.78 10^3/uL (1.2-3.4); Absolute Monocyte Count 0.72 10^3/uL (0.1-0.8); Basophils % 0.5 %; Eosinophils % 1.2 %; HCT 42.3 % (36.0-46.0); HGB 14.2 g/dL (11.2-15.7); Immature Grans % 0.3 %; Lymphocytes % 30.3 %; MCH 30.4 pg (27.0-33.0); MCHC 33.6 % (32.0-36.0); MCV 91 fL (80-95); MPV 9.8 fL (8.0-11.0); Monocytes % 7.8 %; Neutrophils % 59.9 %; Platelet Count 293 10^3/uL (130-400); RBC 4.67 10^6/uL (3.93-5.22); RDW 13.2 % (11.7-14.6); RDW-SD 43.6 fL; WBC 9.19 10^3/uL (4.4-10.8)
[2024-02-20 13:19] LABS: Bilirubin Negative (Negative); Blood Negative (Negative); Clarity Clear (Clear); Glucose Negative (Negative); Ketones Negative (Negative); Leukocyte Esterase Negative (Negative); Nitrite Negative (Negative); Urobilinogen 0.2 mg/dL (Up to 0.2); pH 5.5 (5-8)
[2024-02-20 13:42] LABS: Albumin 3.6 g/dL (3.4-5.0); Alkaline Phosphatase 69 U/L (46-116); Anion Gap 9.8 mmol/L (3-11); BUN 18 mg/dL (7-18); CO2 26.2 mmol/L (21.0-32.0); Calcium 8.6 mg/dL (8.5-10.1); Chloride 107 mmol/L (98-107); Estimated GFR 59.49 (mL/min/1.73m2); Glucose 105 mg/dL (74-106); Potassium 4.5 mmol/L (3.5-5.1); Sodium 143 mmol/L (136-145); TSH 0.72 uIU/mL (0.36-3.74); Total Protein 7.3 g/dL (6.4-8.2); Troponin I 9 ng/L (<or=51)
[2024-02-20 14:22] LABS: Troponin I 4 ng/L (<or=51)
--- NOTE | 2024-02-20 14:31 | W.ED.GENAD ---
Discharge Plan Disposition Patient Disposition: Home Condition: Stable Discharge Details Clinical Impression: Episodic lightheadedness Primary Care Provider: Marlyn Howell ED Provider: Johnny Robles Home Meds and New Rx's Prescriptions: No Action flaxseed oil 1,000 mg capsule 1,000 mg PO DAILY Rx Instructions: administer with a meal 05/24/[address] Vallejo per pt. mk NAC 1,200 mg PO BID Rx Instructions: 05/24/[address] Vallejo. Takes 2 am 1 pm. mk acetaminophen [Mapap Extra Strength] 500 mg tablet 650 mg PO Q8H PRN Patient Comments: Taking arthritis version of tylenol (DME) weighted breast prosthesis (L) See Rx Instructions .Route .MEDSUPPLY Qty: 1 0RF Rx Instructions: Dispense with bras (4) calcium magnesium 450 mg PO HS Patient Comments: Mg = 144mg, Calcium = 450mg takes 2 tabs daily magnesium 240 mg PO HS Patient Comments: tabs = 120mg cholecalciferol (vitamin D3) 50 mcg (2,000 unit) capsule 100 mcg PO DAILY Rx Instructions: 4,000IU CBD oil PO PRN Rx Instructions: QHS selenium 200 mcg capsule 200 mcg PO .2-3 times weekly Rx Instructions: Pt reports taken this 2-3 times a week-- mecobalamin (vitamin B12) 1,000 mcg tablet,disintegrating 3,000 mcg sublingual .Three Times A Week fluticasone propion-salmeterol [Advair HFA] 230-21 mcg/actuation HFA aerosol inhaler 2 puff inhalation .QOD Rx Instructions: Pt reports 3x a week--01/31/24 multivitamin [Daily Multi-Vitamin] 1 EACH tablet 1 ea PO DAILY CBD oil PO HS 0RF albuterol sulfate [ProAir HFA] 90 mcg/actuation HFA aerosol inhaler 2 puff IH Q4H PRN (Reason: shortness of breath or wheezing) Qty: 18 2RF adrenal 1 tab PO DAILY Rx Instructions: 1 cap sertraline 50 mg tablet 100 mg PO DAILY Qty: 180 3RF levothyroxine 100 mcg tablet See Rx Instructions .ROUTE .COMPLEX Qty: 90 3RF Dose Instruction: TAKE ONE TABLET BY MOUTH EVERY DAY Rx Instructions: TAKE ONE TABLET BY MOUTH EVERY DAY gabapentin 100 mg capsule See Rx Instructions .ROUTE .COMPLEX Qty: 90 3RF Dose Instruction: TAKE ONE CAPSULE BY MOUTH EVERY DAY AT BEDTIME NEEDED FOR NERVE PAIN Rx Instructions: TAKE ONE CAPSULE BY MOUTH EVERY DAY AT BEDTIME NEEDED FOR NERVE PAIN tumeric complex 2 cap PO BID Herbal Support Complex 1 cap PO DAILY Patient Comments: 10/29/20 for thyroid per pt. Rx Instructions: FROM [facility] FOR THYROID Discharge Instructions Instructions: Dizziness, Nonvertigo, (DC) Additional Instructions: Your lab work today is unremarkable. Urinalysis does not demonstrate an infection. 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 Your cardiac blood work and your EKG are all normal. If symptoms persist, please follow-up with your primary care provider for reevaluation. Return to the emergency department with loss of consciousness, chest pain or other concerns. HPI General Date/Time Provider Initiated Documentation: 02/20/24 12:54. Limitations to Documentation: no limitations. Information obtained by: patient. HPI Narrative: 73-year-old female with past medical history including macular degeneration, breast cancer restless leg neuropathy the hyperlipidemia presents for evaluation after an episode of lightheadedness. She reports that she was sitting in a conference when everything kind of blacked out. She did not lose consciousness. She felt a little lightheaded. She was aware of everything that was going on. She did not have any chest pain or shortness of breath. This lasted momentarily and resolved spontaneously. She stayed in the conference for another 2 hours prior to leaving and then coming in for evaluation. She reports that she has been feeling well. Over the last week she has had 2 brief episodes of palpitations but has not measured a heart rate or blood pressure during these episodes. She reports that her symptoms have resolved at this time and she feels fine. Related Data Home Medications ?Medication ?Instructions ?Recorded ?Confirmed multivitamin (Daily Multi-Vitamin 1 ea PO DAILY 04/18/15 02/20/24 tablet) calcium magnesium 450 mg PO HS 10/29/20 02/20/24 magnesium 240 mg PO HS 10/29/20 02/20/24 cholecalciferol (vitamin D3) 50 100 mcg PO DAILY 05/06/21 02/20/24 mcg (2,000 unit) capsule albuterol sulfate 90 mcg/actuation 2 puff inhalation Q4H PRN 05/19/22 02/20/24 aerosol inhaler (ProAir HFA) shortness of breath or wheezing #18 grams CBD PO PRN 06/08/22 02/03/24 weighted breast prosthesis (L) #1 ea 10/14/22 02/20/24 Herbal Support Complex 1 cap PO DAILY 11/17/22 02/20/24 adrenal 1 tab PO DAILY 11/17/22 02/20/24 acetaminophen 500 mg tablet (Mapap 650 mg PO Q8H PRN 01/07/23 02/20/24 Extra Strength) selenium 200 mcg capsule 200 mcg PO .2-3 times weekly 01/07/23 02/20/24 sertraline 50 mg tablet 100 mg (2 x 50 mg) PO DAILY #180 04/28/23 02/20/24 tab-caps mecobalamin (vitamin B12) 1,000 3,000 mcg sublingual .Three Times 08/05/23 02/20/24 mcg disintegrating A Week tablet,sublingual levothyroxine 100 mcg tablet See Rx Instructions .Route 09/07/23 02/20/24 .COMPLEX #90 tabs gabapentin 100 mg capsule See Rx Instructions .Route 01/26/24 02/20/24 .COMPLEX #90 caps NAC 1,200 mg PO BID 01/31/24 02/20/24 flaxseed oil 1,000 mg capsule 1,000 mg PO DAILY 01/31/24 02/20/24 fluticasone propionate 230 2 puff inhalation .QOD 01/31/24 02/20/24 mcg-salmeterol 21 mcg/actuation HFA inhaler (Advair HFA) tumeric complex 2 cap PO BID 01/31/24 02/20/24 Previous Rx's ?Medication ?Instructions ?Recorded albuterol sulfate 90 mcg/actuation 2 puff inhalation Q4H PRN 05/19/22 aerosol inhaler (ProAir HFA) shortness of breath or wheezing #18 grams weighted breast prosthesis (L) #1 ea 10/14/22 sertraline 50 mg tablet 100 mg (2 x 50 mg) PO DAILY #180 04/28/23 tab-caps levothyroxine 100 mcg tablet See Rx Instructions .Route 09/07/23 .COMPLEX #90 tabs gabapentin 100 mg capsule See Rx Instructions .Route 01/26/24 .COMPLEX #90 caps Allergies Allergy/AdvReac Type Severity Reaction Status Date / Time celecoxib (From Celebrex) Allergy Intermediate rash Verified 02/20/24 12:42 NSAIDS (Non-Steroidal Allergy Intermediate Hives Verified 02/20/24 12:42 Anti-Inflamma adhesive AdvReac LG LOCAL Verified 02/20/24 12:42 REACTION codeine (Codeine) AdvReac DIZZINESS/L Verified 02/20/24 12:42 IGHTHEADEDN ESS FRAGRANCES Allergy Mild Skin Rash Uncoded 02/20/24 12:42 chlorine AdvReac Mild Skin Rash Uncoded 02/20/24 12:42 General Stated Complaint: [id number] BRENDEN: 3 Exam Narrative Exam Narrative: Review of Systems: All systems reviewed & are unremarkable except as noted in HPI and below Well-developed, no acute distress NCAT PERRL, normal conjunctiva RRR no murmur Unlabored respiratory effort clear bilaterally Nondistended abdomen nontender Extremities w/o edema no focal neurologic deficits Course Vital Signs Vital signs: Vital Signs Temperature 36.9 C 02/20/24 12:38 Pulse 64 02/20/24 12:38 Respiratory Rate 20 02/20/24 12:38 Blood Pressure 176/93 H 02/20/24 12:38 Pulse Oximetry 97 02/20/24 12:38 Temperature 36.9 C 02/20/24 12:38 Temperature Source Oral 02/20/24 12:38 Pulse 65 02/20/24 13:12 Respiratory Rate 20 02/20/24 12:38 Respiratory Effort Normal, Non-Labored 02/20/24 12:43 Blood Pressure 140/62 02/20/24 13:12 Blood Pressure Position Sitting 02/20/24 12:38 Pulse Oximetry 97 02/20/24 12:38 Oxygen Delivery Method Room Air 02/20/24 12:38 Oxygen Flow Rate 0 02/20/24 12:38 Lab/Test Results Lab/Test Results: Laboratory Tests Range/Units 02/20/24 02/20/24 02/20/24 12:59 13:05 13:56 WBC (4.4-10.8) 10^3/uL 9.19 RBC (3.93-5.22) 10^6/uL 4.67 Hgb (11.2-15.7) g/dL 14.2 Hct (36.0-46.0) % 42.3 MCV (80-95) fL 91 MCH (27.0-33.0) pg 30.4 MCHC (32.0-36.0) % 33.6 RDW (11.7-14.6) % 13.2 Plt Count (130-400) 10^3/uL 293 MPV (8.0-11.0) fL 9.8 Immature Gran % % 0.3 Neutrophils % % 59.9 Lymphocytes % % 30.3 Monocytes % % 7.8 Eosinophils % % 1.2 Basophils % % 0.5 Nucleated RBC % (0.0-0.3) % 0.0 Absolute Neutrophils (1.2-6.7) 10^3/uL 5.50 Absolute Lymphocytes (1.2-3.4) 10^3/uL 2.78 Absolute Monocytes (0.1-0.8) 10^3/uL 0.72 Absolute Eosinophils (0.0-0.7) 10^3/uL 0.11 Absolute Basophils (0.0-0.2) 10^3/uL 0.05 Sodium (136-145) mmol/L 143 Potassium (3.5-5.1) mmol/L 4.5 Chloride (98-107) mmol/L 107 Carbon Dioxide (21.0-32.0) mmol/L 26.2 Anion Gap (3-11) mmol/L 9.8 BUN (7-18) mg/dL 18 Creatinine (0.55-1.02) mg/dL 1.0 Est GFR (CKD-EPI 2020) (mL/min/1.73m2) 59.49 Glucose (74-106) mg/dL 105 Calcium (8.5-10.1) mg/dL 8.6 Magnesium (1.8-2.4) mg/dL 2.0 Total Bilirubin (0.2-1.0) mg/dL 0.40 Alkaline Phosphatase (46-116) U/L 69 Troponin I (<or=51) ng/L 9 4 Total Protein (6.4-8.2) g/dL 7.3 Albumin (3.4-5.0) g/dL 3.6 TSH (0.36-3.74) uIU/mL 0.72 Urine Color (Yellow) Yellow Urine Clarity (Clear) Clear Urine pH (5-8) 5.5 Ur Specific [place] (1.005-1.025) 1.010 Urine Protein (Neg-Trace) mg/dL Negative Urine Ketones (Negative) mg/dL Negative Urine Blood (Negative) Negative Urine Nitrite (Negative) Negative Urine Bilirubin (Negative) Negative Urine Urobilinogen (Up to 0.2) mg/dL 0.2 Ur Leukocyte Esterase (Negative) Negative Urine Glucose (Negative) mg/dL Negative Range/Units 02/20/24 15:55 WBC (4.4-10.8) 10^3/uL RBC (3.93-5.22) 10^6/uL Hgb (11.2-15.7) g/dL Hct (36.0-46.0) % MCV (80-95) fL MCH (27.0-33.0) pg MCHC (32.0-36.0) % RDW (11.7-14.6) % Plt Count (130-400) 10^3/uL MPV (8.0-11.0) fL Immature Gran % % Neutrophils % % Lymphocytes % % Monocytes % % Eosinophils % % Basophils % % Nucleated RBC % (0.0-0.3) % Absolute Neutrophils (1.2-6.7) 10^3/uL Absolute Lymphocytes (1.2-3.4) 10^3/uL Absolute Monocytes (0.1-0.8) 10^3/uL Absolute Eosinophils (0.0-0.7) 10^3/uL Absolute Basophils (0.0-0.2) 10^3/uL Sodium (136-145) mmol/L Potassium (3.5-5.1) mmol/L Chloride (98-107) mmol/L Carbon Dioxide (21.0-32.0) mmol/L Anion Gap (3-11) mmol/L BUN (7-18) mg/dL Creatinine (0.55-1.02) mg/dL Est GFR (CKD-EPI 2020) (mL/min/1.73m2) Glucose (74-106) mg/dL Calcium (8.5-10.1) mg/dL Magnesium (1.8-2.4) mg/dL Total Bilirubin (0.2-1.0) mg/dL Alkaline Phosphatase (46-116) U/L Troponin I (<or=51) ng/L Cancelled Total Protein (6.4-8.2) g/dL Albumin (3.4-5.0) g/dL TSH (0.36-3.74) uIU/mL Urine Color (Yellow) Urine Clarity (Clear) Urine pH (5-8) Ur Specific [place] (1.005-1.025) Urine Protein (Neg-Trace) mg/dL Urine Ketones (Negative) mg/dL Urine Blood (Negative) Urine Nitrite (Negative) Urine Bilirubin (Negative) Urine Urobilinogen (Up to 0.2) mg/dL Ur Leukocyte Esterase (Negative) Urine Glucose (Negative) mg/dL Medical Decision Making Emergent evaluation of lightheadedness. Patient has normal orthostatic vital sign her symptoms have resolved at this time. Her EKG was reviewed and independently interpreted: Sinus [address] changes. No acute ischemic change. Her blood pressure and heart rate are normal, no signs of dysrhythmia. Initial differential includes vasovagal episode, dehydration, overheated, hypoglycemia. Symptoms resolved spontaneously and sound very brief in duration. Blood work was obtained, no leukocytosis or anemia, no electrolyte derangement. There was some difficulty in getting a result for her AST and ALT her urinalysis is negative for any signs of infection. She has been monitored on telemetry and has had no events. At this time I feel she is stable for discharge. I recommend that she monitor her symptoms and follow-up with her PCP if she is having repeated symptoms or other concerns.. Quality:SDOH Health Related Social Needs: No Data to Display PFSH All Active Problems (Updated 02/20/24 @ 14:39 by Johnny Robles MD) Episodic lightheadedness (Acute) Low vitamin B12 level (Acute) Nonexudative age-related macular degeneration, left eye, advanced atrophic with subfoveal involvement (Acute ~01/20/24) Combined forms of age-related cataract, bilateral (Acute ~08/08/15) Osteoarthritis of right knee (Acute) DEPO MEDROL 11/01/23 Periodic limb movement disorder (Acute) History of left breast cancer (Chronic ~2015) s/p L breast mastectomy, no RXT or chemo Wears hearing aid (Acute) Restless legs syndrome (RLS) (Acute) per sleep study, [ ] trial Gabapentin 2' restless legs+neuropathy+sleep+ fibromyalgiaHx Impairment of speech discrimination (Acute) Obstructive sleep apnea syndrome (Chronic) Overnight O2; 2022: repeat sleep study, pending discussion Neuropathy (Acute) Hx mild numbness and foot drop with back injury, but resolved and @ baseline. Asthma (Chronic 07/27/12) Spirometry/PFT (10/2020) shows: No airflow limitation; no significant bronchodilator response; restrictive pattern; normal muscle pressures; mild restriction present .. 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) LPRD (laryngopharyngeal reflux disease) (Chronic) Self-manages with lifestyle; avoids caffeine; Tums PRN Advance directive in chart (Chronic 03/26/16) Sensorineural hearing loss, bilateral (Chronic 01/23/14) Spinal stenosis of lumbar region (Chronic 07/07/11) Hyperlipidemia (Chronic 04/19/15) 07/2016 labwork: ACC/AHA 10-year ASCVD risk = ~6.3% --> no statin indicated at this time 01/31/24: No further monitoring agreed upon 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 10/2020. Dermatophytosis (~2019) Mostly resolved with anti-fungal, OTC. Trial zinc oxide paste. Diverticulosis (~2017) 01/06/18 colonoscopy (Dr. Johnston) Hiatal hernia with GERD Inflamed seborrheic keratosis (01/21/21) [facility] [place]ofibroma (01/21/21) [place] [facility]roid nodule US (+), FNA recommended; [facility] [place] and FNA not needed 05/2022-->no F/U surveillance as [place] [facility] [place] not show nodule or other issues Dysphagia No pain, occasional difficulty with larger capsules .. associated with goiter? Zahl of foot Sun-induced skin changes, keratosis (01/01/14) Low serum triiodothyronine (T3) Pain of left lateral upper thigh Years .. 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 : R flank x1, L shoulder x1, L chest x1, per 04/16/22 [facility] [place].HE History of cataract extraction Bilateral Hx of adenoidectomy Hx of tonsillectomy History of bilateral hip replacements (~2016) LEFT: 06/30/16; RIGHT: 01/28/17 Ultrasound guided automated core biopsy, left breast (07/15/15) [facility] Loretta Loera MD Colonoscopy - IV Sedation 2008 Breast, Mastectomy (08/09/15) left w/ sentinel lymph node bx. [facility] [place]endectomy (~1989) Family History Mother Essential hypertension Brother Prostate cancer Father History of high blood pressure Niece Autoimmune disease x4 Social History Smoking/Tobacco Use Status: Never Smoking risk assessment performed?: Yes Alcohol Intake: current Alcohol Intake frequency: a few times a week Alcohol type: wine Drug use: Never Substance use type: does not use Details: alcohol t-1 Caregiver/Support person: No Household members: spouse Housing: house Number of Children: 2 number of grandchildren: 4 Communication Needs: None and Corrective Lenses 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 Pets and animals: Yes Pets and animals: dog(s) Current gender identity: female What is your relationship status?: How often do you talk on the phone with friends or family?: three or more times per week How often do you get together with friends or relatives?: three or more times per week How often do you attend anabaptism or druze services?: 4 or more times per year Panel score (0-1 are the most socially isolated patients): 3 What type of physical activity do you participate in: walking Duration: 30-45 minutes/day Frequency: 3-4 times per week Seatbelt use: always Drive intox or ride w/intox pile driver operator barge mounted: No Water heater temp set <120 deg: Yes Working smoke detector in home: Yes Fire extinguisher in home: Yes Carbon monox detector in home: Yes Firearms in home: Yes Firearms unloaded and locked: Yes Do you feel safe at home: Yes Do you feel safe in your relationship?: Yes Female Reproductive History Menstrual Menopause type: natural PAWSS Have you Been Recently Intoxicated or Drunk Within the Last 30 days?: No Have you Ever Experienced Previous Episodes of Alcohol Withdrawal?: No Have you ever Experienced Withdrawal Seizures?: No Have you ever Experienced Delirium Tremens(DT)s?: No Have you ever undergone Alcohol Rehabilitation Treatment (i.e, inpt ot outpatient treatment programs)?: No Have you ever Experienced Blackouts?: No Have you ever Combined Alcohol with other Downers within the last 90 days?: No Have you ever Combined Alcohol with any other Substance of Abuse during the last 90 days?: No Positive Blood Alcohol level on Presentation? [PCS.BAL]: No Evidence of Increased Autonomic Activity (i.e. HR>120, tremor, sweating, agitation, nausea)?: No Result: 0
[2024-02-20 14:37] LABS: ALT 31 U/L (14-59); AST 27 U/L (15-37)
== END 2024-02-20 15:12 | disposition home or self-care (01) ==
PROVIDERS: Emergency Provider Emergency Medicine; PCP Nurse Practitioner Adult Health
DX: R42 Dizziness and giddiness (principal)
CPT/HCPCS: 36415; 80053; 93005; 99284; 81003; 83735; 84443; 84484; 85025; 93010

== ENCOUNTER 2024-02-24 10:40 | Outpatient (CLI) | payer MEDICARE, BC, SELFPAY | END 2024-02-24 10:41 | disposition home or self-care (01) | PROVIDERS: PCP Nurse Practitioner Adult Health; Visit Provider Nurse Practitioner Family | DX: R00.2 Palpitations (principal) | CPT/HCPCS: 93246 ==

== ENCOUNTER 2024-02-25 10:48 | Outpatient (CLI) | payer MEDICARE, BC, SELFPAY ==
[2024-02-25 08:09] LABS: FREE T4 0.93 ng/dL (0.76-1.46)
[2024-02-25 08:14] LABS: Calculated LDL 131 mg/dL (<100); Cholesterol 234 mg/dL (<200); HDL Cholesterol 57 mg/dL (40-60); TSH 0.96 uIU/mL (0.36-3.74); Triglyceride 233 mg/dL (<150)
[2024-02-25 18:26] LABS: Thyroglobulin Antibody 171 U/mL (<=60); Thyroperoxidase Antibody >1300 U/mL (<=60)
== END 2024-02-25 10:49 | disposition home or self-care (01) ==
LOC: LBO 10:50
PROVIDERS: PCP Nurse Practitioner Adult Health; Visit Provider Nurse Practitioner Family
DX: E06.3 Autoimmune thyroiditis (principal); E78.5 Hyperlipidemia, unspecified
CPT/HCPCS: 36415; 80061; 86376; 84439; 84443

== ENCOUNTER 2024-02-29 01:40 | Outpatient (CLI) | payer MEDICARE, BC, SELFPAY ==
--- NOTE | 2024-02-29 15:00 | DI.US_ITS ---
Exam(s) US CAROTID EXAM: US CAROTID CLINICAL HISTORY: ? carotid stenosis,presyncope,vision loss, episodic lightheadedness,r42. TECHNIQUE: Ultrasound carotids performed using grayscale, color-flow, and spectral Doppler imaging. COMPARISON: US US LOWER EXTREMITY VENOUS RT from 03/22/2023 FINDINGS: CAROTID ARTERIES: There is only minimal plaque in the common carotid arteries, carotid bulbs and proximal internal angel tid arteries bilaterally. There are no elevated velocities. VERTEBRAL ARTERIES: Antegrade flow was demonstrated in both vertebral arteries. Measurements: R Bulb: 76.3cm/s PS / 16.7cm/s ED R CCA: 86.7cm/s PS / 23.2cm/s ED R ECA: 95.7cm/s PS / 8.9cm/s ED R ICA Prox: 91.9cm/s PS / 20.6cm/s ED R ICA Mid: 98.9cm/s PS / 29.4cm/s ED R ICA Distal: 69.3cm/s PS /24.3cm/s ED R Vert: 53.8cm/s PS / 11.4cm/s ED R SVR: 1.1 R DVR: 1.3 L Bulb: 76.9cm/s PS / 19.1cm/s ED L CCA: 97.5cm/s PS / 26.8cm/s ED L ECA: 94.9cm/s PS / 15.3cm/s ED L ICA Prox: 89.8cm/s PS / 20.4cm/s ED L ICA Mid: 122.3cm/s PS / 38cm/s ED L ICA Distal: 85.2cm/s PS / 27.7cm/s ED L Vert: 69.3cm/s PS / 17.9cm/s ED L SVR: 1.3 L DVR: 1.4 IMPRESSION: No evidence for hemodynamically significant carotid stenosis. Antegrade flow is demonstrated in both vertebral arteries in the neck. Criteria for Carotid Stenosis: Normal: ICA PSV <125 cm/s no plaque or intimal thickening is visible. <50% stenosis: ICA PSV <125 cm/s and plaque or intimal thickening is visible. 50-69% stenosis: ICA PSV is 125-250 cm/s and plaque is visible. >70% stenosis to near occlusion: ICA PSV >250 cm/s with visible plaque and luminal narrowing. DATA REPOSITORY:
== END 2024-02-29 02:00 ==
LOC: DI 01:40
PROVIDERS: PCP Nurse Practitioner Adult Health; Visit Provider Nurse Practitioner Family
DX: R55 Syncope and collapse (principal); H54.7 Unspecified visual loss
CPT/HCPCS: 93880

== ENCOUNTER 2024-03-17 08:58 | Outpatient (CLI) | payer MEDICARE, BC, SELFPAY ==
--- NOTE | 2024-03-17 09:24 | W.CARDEVENT ---
Date of service: 03/17/24 Time of Service: 09:24 Cardiac Event Recorder Referring Provider:: Bryanna Caballero Indications:: Palpitations and dizziness Cardiac Event Note: This is a cardiac event monitor. Patient was monitored for 13 days and 11 hours. Rhythm throughout was sinus with an average heart rate of 68. Minimum was 46, maximum 121. There were very rare isolated ventricular ectopic beats. There were occasional atrial premature beats. There were several self-limited atrial runs. These were generally 3-4 beats in duration. some episodes labeled SVT with sinus tachycardia rate 1 10-1 20. There was no atrial fibrillation, no high-grade AV block, no pauses greater than 3 seconds. Patient symptoms correlated with atrial premature beats and sinus tachycardia
== END 2024-03-17 08:59 | disposition home or self-care (01) ==
LOC: CARDOPNVT 08:58
PROVIDERS: PCP Nurse Practitioner Adult Health; Referring Provider Nurse Practitioner Family; Visit Provider Internal Medicine Cardiovascular Disease
DX: R42 Dizziness and giddiness; I49.1 Atrial premature depolarization
CPT/HCPCS: 93248

== ENCOUNTER 2024-03-21 01:16 | Outpatient (CLI) | payer MEDICARE, BC, SELFPAY ==
--- NOTE | 2024-03-21 06:30 | DI.US_ITS ---
Exam(s) US THYROID EXAM: US THYROID CLINICAL HISTORY: rose thyroiditis,thyroid nodule,e06.3,e04.1. TECHNIQUE: Ultrasound thyroid performed using standard protocol. COMPARISON: US US THYROID from 07/10/2021 FINDINGS: ISTHMUS: 3.3 mm RIGHT LOBE: Size: 4.8 x 1.7 x 1.6 cm Echogenicity: There is diffuse heterogeneity of the right lobe of the thyroid gland without discrete nodule present. Vascularity: Normal. Nodules: None. LEFT LOBE: Size: 4.2 x 1.7 x 1.6 cm Echogenicity: There is diffuse heterogeneity of the left lobe of the thyroid gland without discrete n odule present. Vascularity: Normal. Nodules: None. OTHER FINDINGS: None. IMPRESSION: Diffuse heterogeneity of the thyroid gland suggesting infiltrative thyroid disease such as a thyroidi tis. No discrete nodule is seen. DATA REPOSITORY:
--- NOTE | 2024-03-21 07:49 | DI.CT_ITS ---
Exam(s) CT HEAD WO EXAM: CT HEAD WO CLINICAL HISTORY: presyncope,? stroke. TECHNIQUE: Imaging Protocol: Axial computed tomography images with coronal and sagittal reformatted images were created and reviewed COMPARISON: MR MR IAC BRAIN WO/W from 10/06/2022 FINDINGS: Ventricles and Extra axial spaces: Normal in size and morphology for the patient's age. Hemorrhage: None. Cerebral parenchyma: No mass effect is identified. No evidence of an acute territorial infarct is se en. There are subtle areas of decreased attenuation in the white matter most consistent with chronic microvascular ischemic disease. Midline shift: None. Brainstem/Cerebellum: Normal. Calvarium: Normal. Visualized Paranasal sinuses/Mastoids: Clear. Soft Tissues: Unremarkable. IMPRESSION: No acute intracranial process. RADIATION DOSE DELIVERED: 901.97mGy.cm Total DLP DATA REPOSITORY: All CT scans at this facility are submitted to the National Radiology Data Registry (NRDR) Dose Index Registry (DIR) with the [employer] ([employer]). RADIATION OPTIMIZATION: All CT scans at this facility use at least one of these dose optimization te chniques: automated exposure control; mA and/or kV adjustment per patient size (includes targeted exa ms where dose is matched to clinical indication); or iterative reconstruction.
== END 2024-03-21 01:36 ==
LOC: DI 01:16
PROVIDERS: PCP Nurse Practitioner Adult Health; Visit Provider Nurse Practitioner Family
DX: R55 Syncope and collapse (principal); E06.3 Autoimmune thyroiditis; E04.1 Nontoxic single thyroid nodule
CPT/HCPCS: 70450; 76536

== ENCOUNTER 2024-03-27 02:13 | Outpatient (CLI) | payer MEDICARE, BC, SELFPAY ==
--- NOTE | 2024-03-27 13:30 | DI.US_ITS ---
APPROVED REPORT EXAM: Comprehensive 2D, Doppler, and color-flow Echocardiogram Patient Location: Out-Patient Power Lineman Technician: George Mendes RDCS (AE) Indications: Pre syncope Echo Enhancing Agent Indication: Rule out Shunt Agent(s) / Amount(s) Used: Agitated Saline 30.0 cc Comments: Contrast study was performed with 3 IV injections of 10ccs of agitated normal saline, at re st, with cough and post valsalva maneuver. Negative contrast study for shunt flow. Conclusion Normal left ventricular wall thickness and chamber size. Ejection fraction is 60 to 65%. Wall motio n is normal Normal right ventricular size and function Both atria are normal in size. There is no evidence of intracardiac shunting with injection of agita adrianna saline There are no structural valvular abnormalities Mild mitral and tricuspid regurgitation Estimated right ventricular systolic pressure is 29 mmHg Wall motion Left Ventricle The left ventricle is normal size. The left ventricular systolic function is normal. The left ventric ular ejection fraction is within the normal range. There is normal left ventricular wall thickness. T here is normal LV segmental wall motion. There is no ventricular septal defect visualized. LVEF is 62 -64%. Right Ventricle The right ventricle is normal size. The right ventricular systolic function is normal. Atria The left atrium size is normal. The right atrium size is normal. Saline bubble contrast intravenous i njection does not demonstrate PFO. Aortic Valve The aortic valve is normal in structure. Aortic valve is trileaflet. There is no aortic valvular sten osis. No aortic regurgitation is present. Mitral Valve The mitral valve is normal in structure. No evidence of mitral valve stenosis. Mild mitral regurgitat ion. Tricuspid Valve The tricuspid valve is normal in structure. There is no tricuspid valve stenosis. Mild tricuspid regu rgitation. The RVSP is 29.0 mmHg. Pulmonic Valve The pulmonary valve is normal in structure. There is no pulmonic valvular stenosis. There is no pulmo adam valvular regurgitation. Great Vessels The aortic root is normal in size. The ascending aorta is normal in size. Aortic arch is not well vis ualized. IVC is normal in size and collapses >50% with inspiration. Pericardium There is no pericardial effusion. 2D Dimensions IVSD d PLAX 0.73 cm F: 0.6-1.0 Ao Root d 2.93 cm F: 2.7 - 3.3 LVPW d PLAX 0.69 cm F: 0.6 - 1.0 Ao Asc Diam d 3.14 cm F: 2.3 - 3.1 LVID d PLAX 5.04 cm F: 3.8 - 5.2 LVDs 3.32 cm F: 2.2 - 3.5 LV EF Teichholz 62.9 % FS 34.16 % LV EDV (Teich) 120.3 mL LV ESV (Teich) 44.7 mL Stroke Vol Index (Teich) 35.17 M-Mode TAPSE 2.80 cm (M/F) >1.7 Auto EF LV EDV A4C 110.4 mL LV EDV A2C 93.6 mL LV EDV BP 101.7 mL LV ESV A4C 41.8 mL LV ESV A2C 33.7 mL LV ESV BP 37.5 mL LVEF(%) A4C 62.1 % LVEF(%) A2C 64.0 % LVEF(%) BP 63.1 % LV SV A4C 68.6 ml LV SV A2C 59.9 ml LV SV BP 64.2 ml LV CO A4C 4.8 L/min LV CO A2C 3.6 L/min LV CO BP 4.2 L/min HR A4C 70.70 BPM HR A2C 60.49 BPM LV EDV Index (BP) LA Volume LA Length A4C 5.2 cm LA Length A2C 5.3 cm LA Area A4C s 13.04 cm2 LA Area A2C s 18.35 cm2 LA Vol A4C A-L 27.75 mL LA Vol A2C A-L 53.56 mL LA Vol Biplane A-L 39.0 mL LA Vol/BSA A4C A-L LA Vol/BSA A2C A-L LA Vol/BSA BP A-L 18.2 mL/m2 LA Vol A4C MOD 26.2 mL LA Vol A2C MOD 48.6 mL LA Vol BP MOD 34.8 mL RA Volume RA Area A4C 14.0 cm2 RA ESV A4C (A-L) 35.1mL RA Vol/BSA A4C A-L RA Length A4C 4.8 cm RA ESV A4C (MOD) 33.1mL LV Diastology MV E' medial 0.106 (>0.07 m/s) MV E Vmax 0.79 (0.4-1.3 m/s) MV E/E' MED 7.45 (<14) MV A Vmax 0.75 (0.4-1.3 m/s) MV E' lateral 0.106 (>0.1 m/s) E/A Ratio 1.1 MV E/E' LAT 7.45 (<14) MV E' Average 0.106 m/s MV E/E'(average) 7.45 Aortic Valve AoV Vmax 1.40 m/s LVOT Vmax 1.14 m/s AoV Peak Grad 7.9 mmHg LVOT Peak Grad 5.2 mmHg AoV Area (Vmax) 1.95 cm2 LVOT VTI 0.284 m AoV VTI 0.354 m LVOT Mean Grad 3.0 mmHg AoV Mean Tank. 0.96 m/s LVOT SV 68.45 mL AoV Mean Grad 4.2 mmHg LVOT Diam s 1.75 cm AoV Area (VTI) 1.93 cm2 AV Regurg Peak Gr. 7.89 mmHg Velocity Ratio 0.81 Mitral Valve MV DT 213 (160-240 msec) Pulmonary Valve PV Vmax 0.98 (0.5-1.5 m/s) RVOT Vmax 0.73 m/s PV Peak Grad 3.8 mmHg RVOT Peak Gr. 2.1 mmHg PV Mean Tank 0.72 m/s RVOT VTI 0.165 m PV Mean Grad 2.3 mmHg RVOT Mean Gr. 1.0 mmHg Tricuspid Valve RA Pressure 3.00 mmHg TR Vmax 2.55 m/s TR Peak Grad 25.9 mmHg RVSP (TR) 29.0 mmHg
== END 2024-03-27 02:33 ==
LOC: DI 02:13
PROVIDERS: PCP Nurse Practitioner Adult Health; Visit Provider Nurse Practitioner Family
DX: R55 Syncope and collapse (principal); I36.0 Nonrheumatic tricuspid (valve) stenosis
CPT/HCPCS: 93306

== ENCOUNTER 2024-03-28 08:57 | Outpatient (CLI) | payer MEDICARE, BC, SELFPAY ==
--- NOTE | 2024-03-28 08:45 | RT.EKG_ITS ---
APPROVED REPORT Exam: Resting ECG Reason for Exam: pre syncope Patient Location: O HR:58 bpm ECG Measurements Heart Rate 58 AXIS AL 155 P 73 QRSd 90 QRS -12 QT 411 T 3 QTc 404 Conclusion Sinus rhythm...normal P axis, V-rate 50- 99 Poor R wave progression
== END 2024-03-28 08:58 | disposition home or self-care (01) ==
LOC: DI.CARD 08:59
PROVIDERS: PCP Nurse Practitioner Adult Health; Visit Provider Internal Medicine Cardiovascular Disease
DX: R00.2 Palpitations (principal); R55 Syncope and collapse
CPT/HCPCS: 93010

== ENCOUNTER → 2024-03-28 11:10 | Outpatient (BNVA) | payer MEDICARE, BC, SELFPAY | PROVIDERS: PCP Nurse Practitioner Adult Health; Referring Provider Nurse Practitioner Adult Health; Visit Provider Internal Medicine Cardiovascular Disease | DX: R94.31 Abnormal electrocardiogram [ECG] [EKG] (principal); R55 Syncope and collapse; R00.2 Palpitations | CPT/HCPCS: 93005; 99214 ==

== ENCOUNTER 2024-05-25 12:02 | Outpatient (CLI) | payer MEDICARE, BC, SELFPAY ==
--- NOTE | 2024-05-25 11:30 | DI.RAD_ITS ---
Exam(s) XR STANDING ALIGNMENT EXAM: XR STANDING ALIGNMENT CLINICAL HISTORY: PRE OP R KNEE. TECHNIQUE: 2D digital imaging was performed. Four images were obtained. CR XR knee LT 3V AP,lat,jean paul from 06/03/2018 CR XR knee RT 3V AP,lat,jean paul from 06/03/2018 FINDINGS: BONES: The patient has bilateral total hip arthroplasties. They appear in stable position. In the k nees there are mild degenerative changes present characterized by joint space narrowing and osteophyt es. The ankles are well maintained.There is no significant leg length discrepancy. SOFT TISSUE: Normal. IMPRESSION: Mild degenerative changes in the knees, right greater than left. DATA REPOSITORY: RADIATION DOSE DELIVERED:
== END 2024-05-25 12:03 | disposition home or self-care (01) ==
LOC: DIORS 12:03
PROVIDERS: PCP Nurse Practitioner Adult Health; Referring Provider Nurse Practitioner Adult Health; Visit Provider Physician Assistant
DX: M17.11 Unilateral primary osteoarthritis, right knee (principal); Z01.818 Encounter for other preprocedural examination
CPT/HCPCS: 99024; 77073

== ENCOUNTER 2024-05-25 22:33 | Outpatient (REF) | payer MEDICARE, BC, SELFPAY ==
[2024-05-25 20:10] LABS: HCT 43.3 % (36.0-46.0); HGB 14.3 g/dL (11.2-15.7); MCH 29.5 pg (27.0-33.0); MCV 90 fL (80-95); MPV 10.5 fL (8.0-11.0); Platelet Count 311 10^3/uL (130-400); RBC 4.84 10^6/uL (3.93-5.22); RDW 13.3 % (11.7-14.6); RDW-SD 43.6 fL; WBC 7.46 10^3/uL (4.4-10.8)
[2024-05-25 20:17] LABS: Anion Gap 11.7 mmol/L (3-11); BUN 17 mg/dL (7-18); CO2 24.3 mmol/L (21.0-32.0); CREATININE 0.8 mg/dL (0.55-1.02); Calcium 9.6 mg/dL (8.5-10.1); Chloride 106 mmol/L (98-107); Estimated GFR 77.27 (mL/min/1.73m2); Glucose 92 mg/dL (74-106); Potassium 4.4 mmol/L (3.5-5.1); Sodium 142 mmol/L (136-145)
== END 2024-05-25 22:34 | disposition home or self-care (01) ==
LOC: LBN 22:33
PROVIDERS: PCP Nurse Practitioner Adult Health; Visit Provider Student in an Organized Health Care Education/Training Program
DX: M17.11 Unilateral primary osteoarthritis, right knee (principal); Z01.818 Encounter for other preprocedural examination
CPT/HCPCS: 80048; 85027

== ENCOUNTER 2024-06-21 06:14 | Day surgery (SDC) | payer MEDICARE, BC, SELFPAY ==
[2024-06-21] VITALS (20 sets, daily range): BP systolic 121–155; BP diastolic 55–75; PULSE 57–76; RESP 12–21; TEMP 36.4–36.8; O2SAT 92–97; BMI 31.5
--- NOTE | 2024-06-21 06:04 | W.ANESPRE ---
General Info Date of Service Date Performed: 06/21/24 Height: 5 ft 10 in Weight: 99.79 kg Body Mass Index (BMI): 31.5 Surgical Procedure: Operation Date: 06/21/24 07:40 Proposed Procedure Side Surgeon p Knee Total Arthroplasty, Cementless CR Right Edward Mcpherson MD Meds Allergies and Home Medications Allergies Allergy/AdvReac Type Severity Reaction Status Date / Time NSAIDS (Non-Steroidal Allergy Intermediate Hives Verified 06/21/24 06:38 Anti-Inflamma adhesive AdvReac LG LOCAL Verified 06/21/24 06:38 REACTION codeine (Codeine) AdvReac DIZZINESS/L Verified 06/21/24 06:38 IGHTHEADEDN ESS FRAGRANCES Allergy Mild Skin Rash Uncoded 06/21/24 06:38 chlorine AdvReac Mild Skin Rash Uncoded 06/21/24 06:38 Home Medication ?Medication ?Instructions ?Recorded multivitamin (Daily Multi-Vitamin 1 ea PO DAILY 04/18/15 tablet) calcium magnesium 450 mg PO HS 10/29/20 magnesium 240 mg PO HS 10/29/20 cholecalciferol (vitamin D3) 50 100 mcg PO DAILY 05/06/21 mcg (2,000 unit) capsule CBD PO PRN 06/08/22 weighted breast prosthesis (L) #1 ea 10/14/22 Herbal Support Complex 1 cap PO DAILY 11/17/22 adrenal 1 tab PO DAILY 11/17/22 acetaminophen 500 mg tablet (Mapap 650 mg PO Q8H PRN 01/07/23 Extra Strength) selenium 200 mcg capsule 200 mcg PO .2-3 times weekly 01/07/23 levothyroxine 100 mcg tablet See Rx Instructions .Route 09/07/23 .COMPLEX #90 tabs gabapentin 100 mg capsule See Rx Instructions .Route 01/26/24 .COMPLEX #90 caps NAC 1,200 mg PO BID 01/31/24 flaxseed oil 1,000 mg capsule 1,000 mg PO DAILY 01/31/24 tumeric complex 2 cap PO BID 01/31/24 cyanocobalamin (vitamin B-12) 1,000 mcg subcut QMONTH #10 mL 04/06/24 1,000 mcg/mL injection solution syringe with needle, safety 3 mL #12 syringes 04/06/24 23 gauge x 1 (Monoject Safety Syringes) sertraline 50 mg tablet See Rx Instructions .Route 05/01/24 .COMPLEX #180 tabs Current Visit Medications: Current Medications Generic Name Dose Route Start Last Admin Trade Name Mohamud PRN Reason Stop Dose Admin Acetaminophen 1,000 mg 06/21/24 06:00 Acetaminophen 500 Mg Tab PO 06/21/24 23:59 PREOP BRIJESH Celecoxib 400 mg 06/21/24 06:00 Celecoxib 200 Mg Cap PO 06/21/24 23:59 PREOP BRIJESH Gabapentin 300 mg 06/21/24 06:00 Gabapentin 300 Mg Cap PO 06/21/24 23:59 PREOP BRIJESH Ringer's Solution 1,000 mls @ 80 mls/hr 06/21/24 06:00 IV 06/21/24 23:59 INFUSION BRIJESH Cefazolin Sodium/Dextrose 2 gm in 50 mls @ 100 mls/hr 06/21/24 06:00 Ancef Duplex IVPB 06/21/24 23:59 PREOP BRIJESH Tranexamic Acid/Sodium Chloride 1,000 mg in 100 mls @ 600 mls/hr 06/21/24 06:00 IVPB 06/21/24 23:59 PREOP BRIJESH IV Miscellaneous Supplies 1 each 06/21/24 06:00 Iv Access IV 06/21/24 23:59 DIRECTED BRIJESH Sodium Chloride 0 ml 06/21/24 06:00 Normal Saline Flush 10 Ml Syr IV 06/21/24 23:59 PRN PRN Sodium Chloride 0 ml 06/21/24 06:00 Normal Saline 10 Ml Vial IJ 06/21/24 23:59 DIRECTED PRN Sterile Water 0 ml 06/21/24 06:00 Water,Injection,Sterile 10 Ml Vial IJ 06/21/24 23:59 DIRECTED PRN PFSH Active Problems Active Problems: Problem Status Onset Code Vision loss Acute H54.7 Pre-syncope Acute R55 Change in vision Acute H53.9 Low vitamin B12 level Acute ~01/2024 R79.89 Combined forms of age-related cataract, bilateral Acute ~08/08/15 H25.813 Osteoarthritis of right knee Acute M17.11 Periodic limb movement disorder Acute G47.61 Wears hearing aid Acute Z97.4 Restless legs syndrome (RLS) Acute G25.81 Impairment of speech discrimination Acute H93.299 Obstructive sleep apnea syndrome Chronic G47.33 Neuropathy Acute G62.9 Restrictive lung disease Chronic J98.4 Nocturnal hypoxia Chronic G47.34 LPRD (laryngopharyngeal reflux disease) Chronic K21.9 Morning headache Acute R51.9 History of left breast cancer Chronic ~2015 Z85.3 Spinal stenosis of lumbar region Chronic 07/07/11 M48.061 Sensorineural hearing loss, bilateral Chronic 01/23/14 H90.3 Hyperlipidemia Chronic 04/19/15 E78.5 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 10/2020. Dermatophytosis (~2019) Mostly resolved with anti-fungal, OTC. Trial zinc oxide paste. Diverticulosis (~2017) 01/06/18 colonoscopy (Dr. Johnston) Hiatal hernia with GERD Inflamed seborrheic keratosis (01/21/21) [facility] Dermatofibroma (01/21/21) Derm [facility] Thyroid nodule US (+), FNA recommended; [facility] Endo reviewed and FNA not needed 05/2022-->no F/U surveillance as US at [facility] did not show nodule or other issues Dysphagia No pain, occasional difficulty with larger capsules .. associated with goiter? [place] of foot Sun-induced skin changes, keratosis (01/01/14) Low serum triiodothyronine (T3) Pain of left lateral upper thigh Years .. 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 states he mothers BP and pulse used to drop with anesthesia and on occasion her's would too. Surgical History Surgical History S/P cryotherapy of skin lesion (04/16/22) [facility] Derm Dr. Dorado : R flank x1, L shoulder x1, L chest x1, per 04/16/22 [facility] note.HE History of cataract extraction Bilateral Hx of adenoidectomy Hx of tonsillectomy History of bilateral hip replacements (~2016) LEFT: 06/30/16; RIGHT: 01/28/17 Ultrasound guided automated core biopsy, left breast (07/15/15) [facility] Radiologist Loretta Loera MD Colonoscopy - IV Sedation 2008 Breast, Mastectomy (08/09/15) left w/ sentinel lymph node bx. [facility] Appendectomy (~1989) Tobacco Smoking/Tobacco Use Status: Never Alcohol Alcohol Intake: current Alcohol intake frequency: a few times a week Alcohol type: wine Substance Use Substance use: Never Substance use type: does not use Vital Signs and Lab Results Vital Signs Most Recent Vital Signs in EMR: Temp Pulse Resp BP Pulse Ox 36.5 C 67 16 155/69 H 96 06/21/24 06:25 06/21/24 06:25 06/21/24 06:25 06/21/24 06:25 06/21/24 06:25 Lab Results Blood Type / Crossmatch: No Data to Display Complete Blood Count: White Blood Count 7.46 10^3/uL (4.4-10.8) 05/25/24 12:05 Red Blood Count 4.84 10^6/uL (3.93-5.22) 05/25/24 12:05 Hemoglobin 14.3 g/dL (11.2-15.7) 05/25/24 12:05 Hematocrit 43.3 % (36.0-46.0) 05/25/24 12:05 Platelet Count 311 10^3/uL (130-400) 05/25/24 12:05 Complete Metabolic Panel: Sodium 142 mmol/L (136-145) 05/25/24 12:05 Potassium 4.4 mmol/L (3.5-5.1) 05/25/24 12:05 Chloride 106 mmol/L (98-107) 05/25/24 12:05 Carbon Dioxide 24.3 mmol/L (21.0-32.0) 05/25/24 12:05 BUN 17 mg/dL (7-18) 05/25/24 12:05 Creatinine 0.8 mg/dL (0.55-1.02) 05/25/24 12:05 Est GFR (CKD-EPI 2020) 77.27 (mL/min/1.73m2) 05/25/24 12:05 Calcium 9.6 mg/dL (8.5-10.1) 05/25/24 12:05 Glucose 92 mg/dL (74-106) 05/25/24 12:05 Liver Function Panel: No Data to Display Coagulation Panel: No Data to Display Cardiac Panel: No Data to Display Arterial Blood Gas: No Data to Display Venous Blood Gas: No Data to Display Pancreas Panel: No Data to Display Thyroid Panel: No Data to Display Infectious Disease: No Data to Display Blood Cultures: No Data to Display Toxicology Panel: No Data to Display Imaging and Studies Imaging and Studies Study information below may be from another EMR and interpreted by another provider. Please see original notes in EMR for more complete details. EKG Summary: 03/28/24 Conclusion Sinus rhythm...normal P axis, V-rate 50- 99 Poor R wave progression Stress Test Summary: 10/2018: negative, target HR achieved. Echocardiogram Summary: 03/27/24 EXAM: Comprehensive 2D, Doppler, and color-flow Echocardiogram Patient Location: Out-Patient Store Receiver: George Mendes RDCS (AE) Indications: Pre syncope Echo Enhancing Agent Indication: Rule out Shunt Agent(s) / Amount(s) Used: Agitated Saline 30.0 cc Comments: Contrast study was performed with 3 IV injections of 10ccs of agitated normal saline, at rest, with cough and post valsalva maneuver. Negative contrast study for shunt flow. Conclusion Normal left ventricular wall thickness and chamber size. Ejection fraction is 60 to 65%. Wall motion is normal Normal right ventricular size and function Both atria are normal in size. There is no evidence of intracardiac shunting with injection of agitated saline There are no structural valvular abnormalities Mild mitral and tricuspid regurgitation Estimated right ventricular systolic pressure is 29 mmHg 10/31: LVEF 55-60%, mild MR, mild to mod TR. Carotid Artery Summary:: 02/29/24 CLINICAL HISTORY: ? carotid stenosis,presyncope,vision loss, episodic lightheadedness,r42. TECHNIQUE: Ultrasound carotids performed using grayscale, color-flow, and spectral Doppler imaging. COMPARISON: US US LOWER EXTREMITY VENOUS RT from 03/22/2023 FINDINGS: CAROTID ARTERIES: There is only minimal plaque in the common carotid arteries, carotid bulbs and proximal internal carotid arteries bilaterally. There are no elevated velocities. VERTEBRAL ARTERIES: Antegrade flow was demonstrated in both vertebral arteries. Pulmonary Function Summary: 08/30/23 Pulmonary Function Test Result Indications: Pulmonary rehab completion Interpretation Spirometry: There is no airflow limitation. There is restrictive spirometry. Impression Restrictive spirometry Clinical Correlation therefore is recommended. 11/02: no airflow limitation, mild restriction, normal diffusion. Anesthesia Assessment and Plan Anesthesia History Personal History: No History of Anesthesia Complications Family History: No Family History of Anesthesia Complications Exercise Tolerance Exercise Tolerance: Metabolic Equivalents>4 Pertinent Negatives Pertinent Negatives: No Symptoms of GERD, No Major Cardiovascular Symptoms or Complaints, No Major Pulmonary Symptoms or Complaints and No History of CVA/TIA Cardiac & Pulmonary Exam Cardiac Exam: Normal S1/S2 Heart Sounds Pulmonary Exam: Clear Bilateral Breath Sounds Implantable Cardiac Device Does patient have a Pacemaker or an ICD?: No Airway Exam Known Difficult Airway: No Mallampati Class: 3 Mouth Opening: Narrow (< 3cm) Thyromental Distance: Greater than 3 cm Neck Range of Motion: Full ROM Neck Circumference: Normal Teeth Condition: Loose or Chipped (chipped not loose) ASA Classification ASA Score: ASA 2 Emergency Case?: No NPO Status NPO Status: NPO Clears >2 hours, Solids >8 hours Anesthesia Plan Resuscitation Status: Full Code Anesthesia Technique: Spinal Anesthesia Airway Planned: Natural Airway Pain Management: Surgeon and patient request nerve block Monitors Used: Standard Monitors
[2024-06-21] MEDS: Lactated Ringers 1,000 ML 80 ML IV (06:44)
[2024-06-21] MEDS: Celecoxib 200 MG CAP 400 MG PO (06:45)
[2024-06-21] MEDS: Gabapentin 300 MG CAP PO (06:45)
[2024-06-21] MEDS: Acetaminophen 500 MG TAB 1000 MG PO (06:45)
--- NOTE | 2024-06-21 07:13 | W.PM.DSUDISC ---
Date of service: 06/21/24 Discharge Plan Disposition Patient Disposition: Home Condition: Good Discharge Details Reason For Visit: R TKR Attending Provider: Edward Mcpherson Primary Care Provider: Marlyn Howell Home Meds and New Rx's Prescriptions: New celecoxib 200 mg capsule 200 mg PO BID Qty: 60 0RF aspirin 81 mg tablet,delayed release (DR/EC) 81 mg PO BID Qty: 60 0RF acetaminophen 500 mg tablet 1,000 mg PO TID Qty: 90 3RF pantoprazole 40 mg tablet,delayed release (DR/EC) 40 mg PO DAILY Qty: 14 0RF dexamethasone 4 mg tablet 4 mg PO DAILY Qty: 2 0RF docusate sodium 100 mg capsule 100 mg PO BID PRNQty: 28 0RF gabapentin 300 mg capsule 300 mg PO QHS Qty: 14 0RF oxycodone 5 mg tablet 5 mg PO Q4H PRNQty: 18 0RF Continued flaxseed oil 1,000 mg capsule 1,000 mg PO DAILY Rx Instructions: administer with a meal 05/24/[address] Vallejo per pt. mk NAC 1,200 mg PO BID Rx Instructions: 05/24/[address] Vallejo. Takes 2 am 1 pm. mk (DME) weighted breast prosthesis (L) See Rx Instructions .Route .MEDSUPPLY Qty: 1 0RF Rx Instructions: Dispense with bras (4) calcium magnesium 450 mg PO HS Patient Comments: Mg = 144mg, Calcium = 450mg takes 2 tabs daily magnesium 240 mg PO HS Patient Comments: tabs = 120mg cholecalciferol (vitamin D3) 50 mcg (2,000 unit) capsule 100 mcg PO DAILY Rx Instructions: 4,000IU CBD oil PO PRN Rx Instructions: QHS selenium 200 mcg capsule 200 mcg PO .2-3 times weekly Rx Instructions: Pt reports taken this 2-3 times a week-- multivitamin [Daily Multi-Vitamin] 1 EACH tablet 1 ea PO DAILY CBD oil PO HS 0RF adrenal 1 tab PO DAILY Rx Instructions: 1 cap levothyroxine 100 mcg tablet See Rx Instructions .ROUTE .COMPLEX Qty: 90 3RF Dose Instruction: TAKE ONE TABLET BY MOUTH EVERY DAY Rx Instructions: TAKE ONE TABLET BY MOUTH EVERY DAY tumeric complex 2 cap PO BID cyanocobalamin (vitamin B-12) 1,000 mcg/mL solution 1,000 mcg subcut QMONTH Qty: 10 1RF (DME) Monoject Safety Syringes 3 mL 23 gauge x 1 syringe See Rx Instructions .Route Qty: 12 0RF Rx Instructions: Monthly B12 injections sertraline 50 mg tablet See Rx Instructions .ROUTE .COMPLEX Qty: 180 3RF Dose Instruction: TAKE TWO TABLETS BY MOUTH EVERY DAY Rx Instructions: TAKE TWO TABLETS BY MOUTH EVERY DAY Herbal Support Complex 1 cap PO DAILY Patient Comments: 10/29/20 for thyroid per pt. Rx Instructions: FROM OPERATING ROOM TECHNOLOGIST FOR THYROID Discontinued acetaminophen [Mapap Extra Strength] 500 mg tablet 650 mg PO Q8H PRN Patient Comments: Taking arthritis version of tylenol gabapentin 100 mg capsule See Rx Instructions .ROUTE .COMPLEX Qty: 90 3RF Dose Instruction: TAKE ONE CAPSULE BY MOUTH EVERY DAY AT BEDTIME NEEDED FOR NERVE PAIN Rx Instructions: TAKE ONE CAPSULE BY MOUTH EVERY DAY AT BEDTIME NEEDED FOR NERVE PAIN Discharge Instructions Additional Instructions: Total Knee Discharge Instructions Activity: The most important activity is to walk and to work on gentle motion (both flexion and extension). You should try to take short walks a few times a day. It is important that when resting you work on keeping the knee straight. Avoid putting a pillow behind the knee as this will encourage flexion. Work on range of motion exercises as provided by Physical Therapy. - Start outpatient physical therapy within 2 weeks. - You should wear the KENY hose on both legs for 2 weeks. You may remove these at night. You may also use any compression sock in place of the KENY hose. - Utilize [employer] to review exercises, see videos on exercises and obtain basic information pertaining to your surgery and your recovery. Dressing: Remove the Mahesh wrap by 2 days after your surgery and put on the KENY stocking given to you from the hospital. Keep the surgical dressing (underneath the MAHESH wrap) in place for at least one week. After the first week it may be removed and replaced with light gauze and tape or nothing. The wound and dressing may get wet after 3 days but avoid soaking the dressing or otherwise it will need to be changed. Many people prefer covering the dressing with cling wrap (saran wrap) to minimize it from getting soaked. If it gets wet, just pat dry. If it starts to peel off then it will need to be changed. Medications: - You should take Tylenol and anti-inflammatory Celebrex as your primary pain control medications. If the Celebrex is too expensive or not covered, please call the office for another alternative (Advil/Ibuprofen or Naproxen/Aleve) - You have been prescribed a stronger pain medication Oxycodone for breakthrough pain, take as needed as prescribed. - You have also been prescribed a stomach acid reduction agent Pantoprozole to help reduce stomach acid and reflux. - You will increase your nighttime Gabapentin to 300mg for two weeks to take at night for restlessness and nerve pain. You may return to your normal 100mg dose after two weeks. - You will be taking Aspirin 81mg twice a day for DVT prevention unless instructed otherwise. - You have also been prescribed Decadron to take to control post-operative nausea and pain. You will start this tomorrow. - If you have constipation you should take Colace or Miralax (both [id number]). It takes most people 3-4 days to have a bowel movement. Follow-up: 2 weeks If you have any acute concerns or questions, please do not hesitate to contact the office at [phone]. You may contact Dr. Mcpherson with any questions after hours through the hospital at [phone] or on his cell phone at [phone]. Referrals: Edward Mcpherson MD [ [facility] STAFF PHYSICIAN] - Equipment/Supplies: Walker Activity:: Activity as Tolerated Shower/Bathe:: 72 hours Diet:: As Tolerated Discharge Orders Discharge Orders: Discharge Order (Routine); Ordered 06/21/24 Ordered By: He Sol DS: Diagnosis Discharge Diagnosis (1) Osteoarthritis of right knee: Status: Acute
--- NOTE | 2024-06-21 07:32 | W.ANESNERVE ---
Nerve Block Single Injection Procedure Date and Time Date Performed: 06/21/24 Procedure Start: 07:19 Location Where Procedure Performed Procedure Location: Day Surgery Unit Reason Performed: Postoperative Analgesia Requesting Provider: Edward Mcpherson Timeout Performed Timeout Performed: Yes Monitoring Used ECG, Blood Pressure, SpO2 and See EMR for corresponding vital signs Sterility Sterility: Hand Hygiene, Surgical Cap, Surgical Mask, Sterile Gloves, Sterile Drape/Sheet and Chlorhexidine Sedation Given During Procedure Sedation Given (Indicate Dose Given): No Sedation given Patient Mental Status Patient Mental Status: Awake Nerve Block 1st Nerve Block: Laterality: Right Block Type: Adductor Canal Ultrasound Image Saved?: Yes Needle / Catheter Used: 100mm SonoPlex II Local Anesthetic Bolus (Indicate Dose Given): Lidocaine used for local infiltration of skin, Injected in 3-5ml increments after negative blood aspiration, Bupivacaine 0.25% Dose:: 10 ml and Exparel Dose:: 10 ml Additives (Indicate Dose Given): None Ultrasound: Sterile probe cover and gel used Nerve Stimulator: Not Used Paresthesia: None Procedure Tolerated: No Complications and Patient tolerated well Procedure Outcome: Successful Performed By: Loretta Decker
[2024-06-21] MEDS: ceFAZolin 2 GM/50 ML BAG IVPB (07:45)
--- NOTE | 2024-06-21 07:55 | W.PM.OP ---
Operative Note Operative Note PRE-OP DIAGNOSIS: Right Knee Osteoarthritis POST-OP DIAGNOSIS: same PROCEDURE: Right Total Knee Replacement with Intraoperative Navigation SURGEON: Edward Mcpherson SPECIAL INSPECTOR: Gina Sol ANESTHESIA TYPE: Spinal Refer to Anesthesia Record ESTIMATED BLOOD LOSS: 100 PATHOLOGY: none sent TOURNIQUET TIME: 0 COMPLICATIONS: None Patient was transported to: PACU Patient's condition: stable Implants: 1. Depuy Attune Cementless Cruciate Retaining Femoral Component, Size 8 2. Depuy Attune Cementless Fixed Bearing Tibial Component, Size 7 3. Depuy Attune 8x5mm CR/FB Poly Indications: I have seen Pilar in clinic for symptoms of RIGHT knee arthritis, confirmed with radiographic findings. She has exhausted nonoperative methods and was having significant limitations in daily function and desired better function and less pain. I discussed the technical details of a knee replacement. I explained the risks of the procedure to include, but not limited to, bleeding, infection, pain, stiffness, fracture, damage to nerves and vessels, damage to muscles and tendons, loosening, need for repeat procedure, blood clot and cardiopulmonary demise. Despite these risks, Pilar elected to proceed. Findings: There was significant signs of arthritis throughout the knee, medial and particularly posterolateral. Procedure Description: Pilar was greeted in the preoperative holding area where the correct side was identified and marked. The consent was reviewed with the patient and signed. The history and physical was updated. All questions were answered. Preoperative mediacations were administered: Acetaminophen 1000mg, Celebrex 400mg, and Gabapentin 300mg. An adductor canal block was then administered by the anesthesia team in the DSU. She was taken back to the operating room. A spinal anesthestic was then administered. The patient was placed into the supine position on the operating room table. Posts were placed for positioning during the procedure. All bony prominences were well padded. Prophylactic antibiotics in the form of Cefazolin were administered. 1g of Tranxemic Acid was given intravenously within 30 minutes of incision. The right leg was then prepped with Chloraprep and draped in a standard fashion with impervious stockinette. A second prep with Chloraprep was performed prior to application of Iodine impregnated skin protection. A timeout to confirm correct identity, side and site, procedure, allergies, anesthesia, and medical concerns was performed. With the knee in some flexion, a midline incision was made overlying the knee. Full thickness skin flaps were raised once the extensor mechanism was encountered. These were raised medially and laterally. Any bleeding was controlled with electrocautery. Once the extensor mechanism was fully exposed, a medial parapatellar arthrotomy was performed in a flexed position. All bleeding from the arthrotomy and the geniculate arteries was coagulated. A medial subperiosteal peel was performed with electrocautery to the midcoronal plane. The fat pad was removed while keeping the patellar tendon protected. The anterior distal femur synovium was removed for later visualization. The ACL and PCL were resected and the anterior horn of the lateral meniscus was transected. The knee was then flexed with the patella everted. Large osteophytes from the femur were removed. A single starting pin was then placed 1cm anterior to the PCL insertion and the notch in the direction of the femoral head. The OrthoAlign device was applied over the pin. It was oriented to be in line with the epicondylar axis and the trochlear groove. It was then pinned into place. The navigation computer was then turned on and calibrated. The distal femur cut was set at 0 degrees valgus and 3.5 degrees flexion. The distal femur cutting guide then was positioned for a 9mm cut. The distal femur was cut with an oscillating saw while protecting the soft tissues. The tibia was then addressed. The OrthoAlign device was placed over the tibial tubercle and medial tibia and secured into position. Once again, OrthoAlign was calibrated and then set for a 1 degree varus cut and 5.5 degrees of posterior slope. With this locked into position, the cut thickness stylus was used to assess cut thickness. The lateral side, most involved side, was set for a 6mm cut, corresponding to 8mm medially at the lowest spot. This was then held in position and pinned into place with 2 additional pins and a cross pin for stability. The medial and lateral collateral ligaments were protected and the cut was performed. With this completed, it was assessed and noted to be of appropriate dimensions. The guide and OrthoAlign was removed. A spacer block was inserted and the knee was brought into extension to ensure enough space was present. . The Orthoalign gap balancing device was then placed in extension. This was used to ensure that the ligaments were properly balanced with up to 2 to 3 mm laxity laterally compared medially. The extension gap was measured as 18mm. The knee was then brought into 90 degrees of flexion and the ligament invasive cardiovascular technologist was once again placed. Under the same amount of force the flexion gap was measured. The Attune specific jig was placed and the flexion gap was made to match the extension gap. The femur was then sized as a size 8. The 4-in-1 cutting guide was the placed. An lanie wing was used to confirm appropriate position of the anterior cut to avoid notching. This cutting guide was ensured to be flush on the cut surface and then pinned into place with headed pins. While protecting the soft tissues, quad tendon, and collateral ligaments, the anterior and posterior cuts were performed with a saw. The central two pins were removed and the posterior and anterior chamfers were cut next. The notch-cutting guide was placed. This was pinned to lateralize the femoral component as much as possible while keeping it flush on the cut surface. This was then pinned into position. A saw was used to make the notch cut. A rasp smoothed the cut surfaces. The medial and lateral menisci were removed. A trial femoral component was then inserted, impacted down to the cut surfaces, and the lug holes were drilled. A provisional trial tibial component was placed and the knee was brought through range of motion. There was noted to be excellent extension and flexion. There was no significant instability. The patella was tracking without thumbs. A size 5mm polyethylene component provided the best range of motion and stability with less than 2mm gapping with medial and lateral stress and full extension without significant hyperextension. The tibial cut surface was fully exposed. The tibia was then sized as a 7. The tibia had been previously marked during trialing to correspond to the center of the tibial component to help with rotation. The trial was aligned to this gina, approximately rotated to the medial 1/3rd of the tibial tubercle. The trial was pinned into place. The tibia was prepared with a reamer and a keel punch and lug holes. The trial components were removed. The final components were opened on the back table. The periosteal and capsular tissues, especially posteriorly, around the knee were then systematically injected with a periarticular cocktail consisting of 246mg of Ropivacaine, 0.5mg of Epinephrine, 0.08mg of Clonidine, and 30mg of Ketorolac, diluted to 100cc. Then, the knee components were placed. Starting with the tibial component, the tibia was subluxed anteriorly and the lug holes of the component were lined up. The tibia was then impacted with an impactor and mallet until the tibial component was in contact with the tibia. Then, the femoral component was inserted. The lug holes were aligned and the component was impacted into position. The final polyethylene component was inserted. The knee was irrigated with Surgiphor Betadine solution. This was allowed to sit in the knee for 3 minutes and then it was thoroughly irrigated out with saline. The knee was then taken through range of motion. The patella was tracking with a no-thumbs technique. A complete synovectomy of the patella was performed. Any prominence to the lateral facet was resected with a rongeur. The capsule was then reapproximated with a No. 1 Vicryl at multiple locations. The capsule was finally closed with a No. 2 Stratafix, barbed suture. Deep tissues were then reapproximated with 0 Vicryl and 2-0 Vicryl. The skin was closed with a running 3-0 Monocryl in a subcuticular fashion. This was reinforced with skin glue. A Mepilex silver dressing was applied along with a ltih-hv-kdxiv VASQUEZ wrap. A CryoCuff was applied. Pilar was transferred to the hospital bed without difficulty an suffering no apparent complication. Pilar has a good prognosis. Physical therapy will start today and without restrictions, weight-bearing as tolerated. Aspirin 81mg BID will be used for DVT prophylaxis. Date of Procedure: 06/21/24
[2024-06-21] MEDS: TRANEXAMIC ACID/SOD. CHL. 1,000 MG/100 ML BAG 600 MG IVPB (07:56)
[2024-06-21] MEDS: oxyCODONE 5 MG TAB PO (10:53)
--- NOTE | 2024-06-21 12:20 | IN_ITS ---
PT Notes Visit Reasons: R TKR Physical Therapy Day Surgery Initial Evaluation Date: Referring Doctor: JOHNY Richardson PT Orders: PT CONSULT: Status post Ortho consult Precautions: Activity as tolerated, weightbearing as tolerated right lower extremity,TEDS x 2 weeks after Mahesh bandage removed Patient Profile/Admitting Diagnosis: Patient is 74-year-old female presenting status post elective right TKA under spinal anesthesia by Dr. Mcpherson on 06/21/2024. Postop uncomplicated PMHX: Superficial thrombosis of right lower extremity (~03/2023) Gastro-esophageal reflux disease without esophagitis RULED OUT, tapered off PPIs .. 10/2020. Dermatophytosis (~2019)Mostly resolved with anti-fungal, OTC. Trial zinc oxide paste. Diverticulosis (~2017) 01/06/18 colonoscopy (Dr. Johnston) Hiatal hernia with GERD Inflamed seborrheic keratosis (01/21/21) [facility] [place]ERMDermatofibroma (01/21/21) [place] [place] (+[place] recommended; [facility] [place] Endo reviewed and FNA not needed 05/2022-->no F/U surveillance as US at [facility] [place] did not show nodule or other issues Dysphagia No pain, occasional difficulty with larger capsules .. 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 Dorado : R flank x1, L shoulder x1, L chest x1, per 04/16/22 [facility] [place] note.HEHistory of cataract extraction Bilateral Hx of adenoidectomy Hx of tonsillectomy History of bilateral hip replacements (~2016) LEFT: 06/30/16; RIGHT: 01/28/17Ultrasound guided automated core biopsy, left breast (07/15/15) [facility] [place] Radiologist Loretta Loera, [facility] [place] Sed[place]Breast, Mastectomy (08/09/15) left w/ sentinel lymph node bx. [facility] [place] Social History/Home Situation: Patient resides in single-family home with 14 steps to enter from garage underneath. Patient has a stair lift to get to main level of home. She drives. Patient independent ambulation without assistive device, independent ADLs, home management, meal prep, shopping, finances and medication management Equipment Owned/DME: FWW, tub seat, raised toilet seat, hand-held shower Subjective: Patient reports she has been attending a gym for approximately 1 year in preparation for this surgery. She is eager to get back to the gym and return to activities of leisure. Patient reports is available to assist as needed Objective: General Observation: Patient presented upright with visiting Cryo/Cuff to right knee. Mental Status: Alert and oriented x 4, able to follow all instructions, good safety awareness and insight. Patient agreeable to participate in evaluation Pain: Right knee 2/10 ROM: BUE: WNL Right Lower Extremity: WNL except knee 0-100 degrees Left Lower Extremity: WNL Strength: BUE: 5/5 Right Lower Extremity: Hip flexion: 3 /5; hip abduction: 3 /5; hip extension: 3 /5; knee extension: 3 /5; knee flexion: 2+/5 ankle DF: 3 /5 ; ankle PF: 3 /5, pt demonstrates strong quad set and SLR in shortened range with no lag Left Lower Extremity: 5/5 Sensation: intact Bed Mobility/Transfers: Supine to sit supervision Sit to stand supervision Stand to sit Supervision Bed to chair: Supervision with FWW Gait: amb with FWW 150 feet reciprocal pattern after initial 30 feet of step to pattern with supervision patient demonstrates heel strike on right with cues, reduced knee flexion during swing phase. Stairs: 5 steps with 2 rails supervision step to pattern Balance: [] Static Sitting: Normal Dynamic Sitting: Good Static Standing: Good Dynamic Standing: fair + Special Tests: [] Mobility Limitations Standardized Measure [] [facility] 6 clicks Basic Mobility Inpatient Short Form: [] Raw Score: 23 CMS Score: 11.20% Informed Consent/Education: Patient instructed in purpose of PT consult. Treatment: Packet containing TKA exercise protocol has been given to patient. Education and training on initial set of exercises 5 reps that can be done at home have been completed with patient. Functional transfer training various surfaces with and without arms with FWW Supervision Assessment: Patient is a 74 yo female who presents with clinical signs and symptoms consistent with current/admitting diagnoses that have resulted to mobility limitations, gait instability, generalized weakness, and impairment of motor control as demonstrated by the following impairment level findings: 1. Decreased strength to right knee major muscle groups 2. Impaired standing balance 3. Limitation of joint range of motion in right knee 4. Impaired functional activity tolerance in standing Impairments are contributing to the following functional limitations: 1. Inability to safely ambulate without assistive device 2. Increase completion time for mobility ADL performance 3. Increased fall risk 4. difficulty performing stairs safely without assistance. Patient is assessed as a low complexity based on the following: History:74-year-old female with impairment level findings, functional limitations, and past medical history as indicated above Examination: Demonstrable impairment in strength, balance, and mobility level with underlying impairments and functional limitations as documented above Presentation: stable Decision Making: low Goals: N/A. Plan of Care/Treatment Plan: N/A. PT evaluation and 1-2 treatment session only for functional mobility training using recommended AD and for HEP instruction. DISCHARGE RECOMMENDATIONS: Home with HEP and outpatient PT as scheduled TREATMENT CODE/TIME: 36219, [id number]/ [id number] Thank you for the opportunity to participate in the care of this patient. Anaid Richard PT [facility]
--- NOTE | 2024-06-21 12:55 | W.ANESPOSTOP ---
Postoperative Evaluation Date, Time and Location Date Performed: 06/21/24 Time Performed: 12:21 Patient Location: Day Surgery Unit Vital Signs Most Recent Imported Vital Signs: Most Recent Vital Signs Temp Pulse Resp BP Pulse Ox 36.5 C 57 L 18 137/63 96 06/21/24 10:54 06/21/24 10:54 06/21/24 10:54 06/21/24 10:54 06/21/24 10:54 Pain Score Most Recent Pain Score: Most Recent Pain Score Pain Level 5 06/21/24 10:54 Assessment Mental Status: Awake (Alert & Oriented to Patient Baseline) Airway and Respiratory Function: Patent airway with normal (patient baseline) respiratory exam Cardiovascular Function: Hemodynamically Stable Hydration Status: Adequately Hydrated Nausea & Vomiting: No Nausea or Vomiting Pain: Pain is tolerable per patient Peripheral Nerve Block: Regional nerve block not resolved at time of post operative discharge
== END 2024-06-21 13:05 | disposition home or self-care (01) ==
PROVIDERS: PCP Nurse Practitioner Adult Health; Visit Provider Student in an Organized Health Care Education/Training Program
PROC: (CPT 27447; principal; 2024-06-21 07:30)
DX: M16.11 Unilateral primary osteoarthritis, right hip (principal); G89.18 Other acute postprocedural pain
CPT/HCPCS: 20985; 27447; 64447; 97161; 97530; C1776; J0665; J0666; J0690; J1100; J2250; J2401; J2405; J2704

== ENCOUNTER → 2024-07-06 09:48 | Outpatient (BNVA) | payer MEDICARE, BC, SELFPAY | PROVIDERS: PCP Nurse Practitioner Adult Health; Referring Provider Nurse Practitioner Adult Health ==

== ENCOUNTER 2024-07-06 10:00 | Outpatient (CLI) | payer MEDICARE, BC, SELFPAY ==
--- NOTE | 2024-07-06 09:45 | DI.RAD_ITS ---
Exam(s) XR KNEE RT 1V XR STANDING ALIGNMENT EXAM: XR STANDING ALIGNMENT and XR knee RT 1 V CLINICAL HISTORY: 1ST POST OP S/P R TKA. TECHNIQUE: 2D digital imaging was performed. Five images were obtained. COMPARISON: CR Bilateral Hips from 01/24/2018 CR XR STANDING ALIGNMENT from 05/25/2024 FINDINGS: BONES: There are stable bilateral total hip arthroplasties. Since the prior examination, the patient has undergone a right total knee arthroplasty. The orthopedic hardware is in good position. No gibran dence of loosening is seen. In the left knee, there is mild joint space narrowing in the medial femo ral tibial joint. Osteophytes are seen both medially and laterally. The ankles are well maintained. The left leg is approximately 1.5 cm longer than the right leg. SOFT TISSUE: Normal. IMPRESSION: 1. Unremarkable right total knee arthroplasty. 2. Mild degenerative changes of the left knee. DATA REPOSITORY: RADIATION DOSE DELIVERED:
== END 2024-07-06 10:01 | disposition home or self-care (01) ==
LOC: DIORS 10:01
PROVIDERS: PCP Nurse Practitioner Adult Health; Referring Provider Nurse Practitioner Adult Health; Visit Provider Physician Assistant
DX: Z96.651 Presence of right artificial knee joint (principal); Z47.1 Aftercare following joint replacement surgery
CPT/HCPCS: 99024; 73560; 77073

== ENCOUNTER 2024-07-26 03:13 | Outpatient (CLI) | payer MEDICARE, BC, SELFPAY ==
[2024-07-26 08:21] LABS: Anion Gap 7.4 mmol/L (3-11); BUN 19 mg/dL (7-18); CO2 27.6 mmol/L (21.0-32.0); CREATININE 0.8 mg/dL (0.55-1.02); Chloride 106 mmol/L (98-107); Estimated GFR 77.27 (mL/min/1.73m2); Folate 15.2 ng/mL (8.6-20.0); Glucose 105 mg/dL (74-106); Potassium 4.2 mmol/L (3.5-5.1); Sodium 141 mmol/L (136-145); TSH (W/Ref FT4) 0.65 uIU/mL (0.36-3.74); Vitamin B12 537 pg/mL (193-986)
== END 2024-07-26 03:14 | disposition home or self-care (01) ==
LOC: LBO 03:13
PROVIDERS: PCP Nurse Practitioner Adult Health; Referring Provider Nurse Practitioner Adult Health; Visit Provider Nurse Practitioner Adult Health
DX: E06.3 Autoimmune thyroiditis (principal); R79.89 Other specified abnormal findings of blood chemistry
CPT/HCPCS: 36415; 80048; 82607; 82746; 84443

== ENCOUNTER → 2024-08-03 09:46 | Outpatient (BNVA) | payer MEDICARE, BC, SELFPAY | PROVIDERS: PCP Nurse Practitioner Adult Health; Visit Provider Physician Assistant | DX: Z47.1 Aftercare following joint replacement surgery (principal); Z96.651 Presence of right artificial knee joint | CPT/HCPCS: 99024 ==

== ENCOUNTER 2024-09-08 00:20 | Outpatient (CLI) | payer MEDICARE, BC, SELFPAY ==
--- NOTE | 2024-09-08 07:26 | DI.MAMMO_ITS ---
Exam(s) MG MAMMO SCREENING 60 MIN DUR EXAM: MG MAMMO SCREENING 60 MIN DUR CLINICAL HISTORY: breast cancer screening, HX LT BREAST CANCER, Z85.3, Z12.31 TECHNIQUE: Bilateral full field digital CC and MLO mammographic images were obtained with 3D tomosynthesis and utilizing computer aided detection (CAD). COMPARISON: Comparison is made with prior examinations. FINDINGS: The patient is status post left mastectomy. Masses/Architectural Distortion: No suspicious masses or areas of architectural distortion are present. Microcalcifications: No suspicious pleomorphic-type are seen. Skin Thickening/Nipple Retraction: None. IMPRESSION: 1. No significant interval change with no specific features of malignancy noted. 2. Unless there is more urgent need, screening mammography is recommended, as per [employer] guidelines. BI-RADS Category 1 - Negative Breast Density - Category B - There are scattered areas of fibroglandular density. Breast density Category C or D implies that the patient has dense breast tissue. Dense breast tissue can make it harder to find cancer on a mammogram. Dense breast tissue is also associated with an increased risk of breast cancer. This information about the result of the mammogram report was provided to the patient to raise their awareness. Use this report when you speak with the patient about their risks for breast cancer, which includes their family history. At that time, you may recommend additional screening tests (Ultrasound or MRI) as these tests may add significant information. A negative radiographic report should not delay biopsy if a dominant or clinically suspicious mass is present. Up to ten percent of cancers are not identified on mammography. A negative report may reinforce clinical impression. Adenosis and dense breasts may obscure an underlying neoplasm. False positive reports average 6 to 10%. Patient will receive a letter notifying them of these results.
== END 2024-09-08 00:40 ==
LOC: DI 00:20
PROVIDERS: PCP Nurse Practitioner Adult Health; Visit Provider Nurse Practitioner Adult Health
DX: Z85.3 Personal history of malignant neoplasm of breast (principal); Z12.31 Encounter for screening mammogram for malignant neoplasm of breast; R92.323 Mammographic fibroglandular density, bilateral breasts
CPT/HCPCS: 77063; 77067

== ENCOUNTER → 2024-11-20 09:59 | Outpatient (BNVA) | payer MEDICARE, BC, SELFPAY | PROVIDERS: PCP Nurse Practitioner Adult Health; Referring Provider Nurse Practitioner Adult Health; Visit Provider Physician Assistant Surgical | DX: J45.40 Moderate persistent asthma, uncomplicated (principal); J98.4 Other disorders of lung; G47.33 Obstructive sleep apnea (adult) (pediatric); Z85.3 Personal history of malignant neoplasm of breast | CPT/HCPCS: 99214 ==

== ENCOUNTER → 2024-11-21 14:22 | Outpatient (BNVA) | payer MEDICARE, BC, SELFPAY | PROVIDERS: PCP Nurse Practitioner Adult Health; Referring Provider Nurse Practitioner Adult Health; Visit Provider Podiatrist | DX: L60.3 Nail dystrophy (principal); B35.1 Tinea unguium; B35.3 Tinea pedis; E53.8 Deficiency of other specified B group vitamins; G63 Polyneuropathy in diseases classified elsewhere; G25.81 Restless legs syndrome; L65.9 Nonscarring hair loss, unspecified; L60.2 Onychogryphosis; L60.8 Other nail disorders | CPT/HCPCS: 11719; G0127 ==